=== PATIENT | male | born 1980 | race Caucasian/White ===

== ENCOUNTER 2021-03-11 09:45 | Outpatient (REF) | payer OTHER, SELFPAY ==
[2021-03-11 12:22] LABS: Hematocrit 42.3 % (42-52); Hemoglobin 14.4 g/dl (14.0-18.0); Mean Corpuscular Hemoglobin 30.8 pg (27.0-33.0); Mean Corpuscular Volume 90.6 fL (80-98); Mean Platelet Volume 11.1 fL (9.4-12.4); Platelet Count 220 X10*3/uL (160-400); Red Blood Count 4.67 X10*6/uL (4.60-5.80); Red Cell Distribution Width 12.4 % (11.0-16.0); White Blood Count 7.3 X10*3/uL (4.8-10.8)
[2021-03-11 12:33] LABS: Alanine Aminotransferase 65 U/L (0-40); Alkaline Phosphatase 175 U/L (39-117); Anion Gap 18 (12-20); Aspartate Amino Transferase 33 U/L (5-37); Bilirubin Total 1.4 mg/dL (0.0-1.0); Blood Urea Nitrogen 16 mg/dL (9-16); Calcium 9.9 mg/dL (8.4-10.2); Carbon Dioxide 28 mmol/L (22-29); Chloride 102 mmol/L (96-108); Cholesterol 193 mg/dL; Estimated Glomerular Filt Rate > 60; Glucose Fasting 97 mg/dL (60-99); HDL Cholesterol 46 mg/dL; LDL Cholesterol Calculated 123 mg/dl; Potassium 4.3 mmol/L (3.3-5.1); Sodium 144 mmol/L (135-145); Total Protein 8.3 g/dL (6.5-8.0); Triglycerides 120 mg/dL
[2021-03-11 13:17] LABS: Glucose Urine UA NEG (NEG); Leukocyte Esterase Urine NEG (NEG); Nitrite Urine NEG (NEG); Specific Gravity - Urine <= 1.005 (1.005-1.025); Urine Blood NEG (NEG); Urine Ketones NEG (NEG); Urine Protein NEG (NEG-TRACE)
[2021-03-11 13:21] LABS: Appearance Urine CLEAR; Color Urine YELLOW
[2021-03-11 14:43] LABS: RBC Urine 0 /HPF (0); WBC Urine 0 /HPF (0-4)
== END 2021-03-11 09:46 | disposition home or self-care (01) ==
LOC: HO.HMGCLDS 09:45
PROVIDERS: PCP Internal Medicine; Visit Provider Internal Medicine
DX: Z00.00 Encounter for general adult medical examination without abnormal findings (principal)
CPT/HCPCS: 36415; 80053; 80061; 81001; 85027

== ENCOUNTER 2021-03-30 08:28 | Outpatient (REF) | payer OTHER, SELFPAY ==
--- NOTE | ~2021-03-30 | US_ITS ---
EXAMINATION: US ABDOMEN COMPLETE CLINICAL INFORMATION: Abnormal levels of other serum enzymes. COMPARISON: None TECHNIQUE: Real-time imaging of the abdominal viscera. FINDINGS: PANCREAS: Normal. ABDOMINAL AORTA: The proximal, mid, and distal segments are normal in caliber. INFERIOR VENA CAVA: Visualized portions are normal. LIVER: Normal. The liver is normal in size. The liver contour is normal. Parenchymal echogenicity is normal. No focal hepatic lesion. There is no intrahepatic biliary duct dilatation seen. GALLBLADDER: Normal. The gallbladder is physiologically distended without evidence of stones, sludge, polyps, wall thickening or pericholecystic fluid. COMMON BILE DUCT: Normal in caliber measuring 0.5 cm in diameter. RIGHT KIDNEY: There is mild increased echogenicity. There is an anechoic cyst, midpole, measuring 1.7 x 1.6 x 1.3 cm and 0.61 x 0.60 x 0.20 cm. There is mild fullness in the kidney pelvis but no hydronephrosis or renal calculi. The kidney measures 11.3 cm in maximum dimension. LEFT KIDNEY: There is an anechoic cyst in the upper pole measuring 1.0 x 0.8 x 0.70 cm. There is mild fullness but no hydronephrosis or renal calculi. The kidney measures 10.6 cm in maximum dimension. SPLEEN: Normal. The spleen measures 11.5 cm in maximum dimension. FREE FLUID: None. US/US abdomen complete IMPRESSION: 1. Mild bilateral renal fullness. No echogenic stones seen. Mild bilateral increased echogenicity both kidneys. 2. The rest of the abdominal ultrasound is unremarkable.
== END 2021-03-30 08:29 | disposition home or self-care (01) ==
LOC: HO.HMGCX 08:28
PROVIDERS: PCP Internal Medicine; Visit Provider Internal Medicine
DX: R74.8 Abnormal levels of other serum enzymes (principal)
CPT/HCPCS: 76700

== ENCOUNTER 2021-04-12 07:28 | Outpatient (REF) | payer OTHER, SELFPAY ==
[2021-04-12 11:46] LABS: Alanine Aminotransferase 131 U/L (0-40); Albumin Level 4.6 g/dL (3.5-5.0); Alkaline Phosphatase 169 U/L (39-117); Aspartate Amino Transferase 71 U/L (5-37); Bilirubin Direct 0.5 mg/dL (0.0-0.5); Bilirubin Total 1.8 mg/dL (0.0-1.0); Total Protein 7.7 g/dL (6.5-8.0)
== END 2021-04-12 07:29 | disposition home or self-care (01) ==
LOC: HO.HMGCLDS 07:28
PROVIDERS: PCP Internal Medicine; Visit Provider Internal Medicine
DX: R74.8 Abnormal levels of other serum enzymes (principal)
CPT/HCPCS: 36415; 80076

== ENCOUNTER 2021-05-04 08:17 | Outpatient (REF) | payer OTHER, SELFPAY ==
[2021-05-04 10:47] LABS: C Reactive Protein 0.26 mg/dL (< or = 0.50); Gamma Glutamyl Transpeptidase 208 U/L (11-51)
[2021-05-04 11:07] LABS: HBc Num1 0.06 S/CO (0.00-0.79); Hepatitis A Antibody IgM 0.15 Index (0-0.79); Hepatitis B Core Antibody Nonreactive (Nonreactive); Hepatitis B Surface Antigen Negative (Negative); ~HepC Num1 0.09 S/CO (0.00-0.79); ~Hepatitis A Antibody IgM Nonreactive (Nonreactive); ~Hepatitis C Antibody Nonreactive (Nonreactive)
[2021-05-04 11:11] LABS: Ferritin 430 ng/mL (20-250)
[2021-05-04 11:56] LABS: HIV AB/AG Nonreactive (Nonreactive); HIV Num 1 0.05 S/CO (0.00-0.99); ~Hepatitis B Surface Antibody NONREACTIVE (Nonreactive)
[2021-05-06 12:12] LABS: Alpha Fetoprotein 1.6 ng/mL (<6.1)
[2021-05-07 23:56] LABS: Smooth Muscle Antibody <20 U (<20)
[2021-05-09 11:35] LABS: Mitochondrial Antibodies NEGATIVE (NEGATIVE)
[2021-05-10 16:21] LABS: Ceruloplasmin 38 mg/dL (18-36)
[2021-05-10 19:21] LABS: FIB-ALT 110 U/L (9-46); FIB-Alpha-2-Macroglobulin 205 mg/dL (106-279); FIB-Apolipoprotein A1 158 mg/dL (94-176); FIB-GGT 165 U/L (3-95); FIB-Haptoglobin 200 mg/dL (43-212); Liver Fibrosis Score 0.37; Liver Fibrosis Stage F1-F2; Nec Inflam Act Grade A3; Nec Inflam Act Score 0.63
== END 2021-05-04 08:18 | disposition home or self-care (01) ==
LOC: HO.LAB 08:17
PROVIDERS: PCP Internal Medicine; Referring Provider Internal Medicine; Visit Provider Nurse Practitioner Family
DX: R74.8 Abnormal levels of other serum enzymes (principal); R79.89 Other specified abnormal findings of blood chemistry; K58.9 Irritable bowel syndrome, unspecified
CPT/HCPCS: 36415; 81596; 82105; 82390; 82728; 82977; 86140; 86255; 86256; 86704; 86706; 86709; 86803; 87340; 87389; 99202

== ENCOUNTER → 2021-06-17 12:08 | Outpatient (BNVA) | payer OTHER, SELFPAY | PROVIDERS: Visit Provider Nurse Practitioner Family | DX: R74.8 Abnormal levels of other serum enzymes (principal) | CPT/HCPCS: 99212 ==

== ENCOUNTER 2021-07-14 08:27 | Outpatient (REF) | payer OTHER, SELFPAY ==
[2021-07-14 12:09] LABS: HBS Num1 4.61 mIU/mL (0-7.99); HBc Num1 0.12 S/CO (0.00-0.79); HBsAGNum1 0.17 S/CO (0.00-0.99); Hepatitis B Core Antibody Nonreactive (Nonreactive); Hepatitis B Surface Antigen Negative (Negative); ~HepC Num1 0.08 S/CO (0.00-0.79); ~Hepatitis B Surface Antibody NONREACTIVE (Nonreactive)
[2021-07-14 12:10] LABS: ~Hepatitis C Antibody Nonreactive (Nonreactive)
[2021-07-14 12:22] LABS: Alanine Aminotransferase 125 U/L (0-40); Albumin Level 4.9 g/dL (3.5-5.0); Alkaline Phosphatase 181 U/L (39-117); Anion Gap 15 (12-20); Aspartate Amino Transferase 57 U/L (5-37); Bilirubin Direct 0.5 mg/dL (0.0-0.5); Bilirubin Total 1.1 mg/dL (0.0-1.0); Blood Urea Nitrogen 20 mg/dL (9-16); C Reactive Protein 0.16 mg/dL (< or = 0.50); Calcium 10.4 mg/dL (8.4-10.2); Carbon Dioxide 29 mmol/L (22-29); Chloride 102 mmol/L (96-108); Estimated Glomerular Filt Rate > 60; Gamma Glutamyl Transpeptidase 192 U/L (11-51); Glucose Fasting 102 mg/dL (60-99); Potassium 4.7 mmol/L (3.3-5.1); Sodium 141 mmol/L (135-145)
[2021-07-15 03:30] LABS: Hepatitis A Antibody IgM 0.27 Index (0-0.79); ~Hepatitis A Antibody IgM Nonreactive (Nonreactive)
[2021-07-18 15:12] LABS: Anti Nuclear Antibody Screen POSITIVE (NEGATIVE)
[2021-07-19 12:45] LABS: Liver Kidney Microsomal Ab <=20.0 U (<=20.0)
== END 2021-07-14 08:28 | disposition home or self-care (01) ==
LOC: HO.HMGCLDS 08:27
PROVIDERS: PCP Internal Medicine; Visit Provider Nurse Practitioner Family
DX: Z00.00 Encounter for general adult medical examination without abnormal findings (principal); R74.8 Abnormal levels of other serum enzymes; K58.9 Irritable bowel syndrome, unspecified; R79.89 Other specified abnormal findings of blood chemistry
CPT/HCPCS: 36415; 80053; 80076; 81256; 82248; 82977; 86038; 86039; 86140; 86376; 86704; 86706; 86709; 86803; 87340

== ENCOUNTER 2021-09-12 08:34 | Outpatient (REF) | payer OTHER, SELFPAY ==
--- NOTE | ~2021-09-12 | US_ITS ---
EXAMINATION: US COMPLETE ABDOMEN WITH LIVER ELASTOGRAPHY CLINICAL INFORMATION: Elevated LFTs. COMPARISON: None. TECHNIQUE: Real-time imaging of the abdominal viscera. Noninvasive ultrasound liver fibrosis assessment is performed using Jose ElastPQ point quantification shear wave elastography (pSWE) with a C5-2 MHz transducer. Multiple elastography samples are obtained. FINDINGS: PANCREAS: There is a small echogenic foci question calcification. The visualized pancreatic head and body are normal in appearance. The remainder of the pancreas is obscured from visualization by the overlying bowel gas. ABDOMINAL AORTA: The proximal, middle, and distal aortic segments are normal in caliber. Mild atherosclerotic calcific plaque visualized in distal abdominal aorta. INFERIOR VENA CAVA: Visualized portions are normal. LIVER: Normal. The liver demonstrates normal size, contour and echogenicity. No focal lesion or intrahepatic biliary duct dilatation. The right lobe measures 11.5 cm in length. The left lobe measures 7.7 cm in length. Portal flow is hepatopedal Shear wave liver elastography median stiffness is 1.31 m/s (reference: normal median stiffness is 1.3 m/s or less). IQR/median stiffness to assess sampling precision is 0.06 (reference: good quality data set is IQR/median stiffness of 0.15 or less). GALLBLADDER: There is echogenic debris visualized in the decubitus view. The gallbladder is physiologically distended without evidence of stones, polyps, wall thickening or pericholecystic fluid. COMMON BILE DUCT: Normal in caliber measuring 0.4 cm in diameter. RIGHT KIDNEY: There is mild increased echogenicity with multiple anechoic cysts largest cyst in the midpole laterally measuring 1.9 x 1.4 x 1.6 cm. There is mild hydronephrosis. No renal calculi or focal parenchymal lesions. The kidney measures 11.1 cm in maximum dimension. LEFT KIDNEY: There are multiple anechoic cysts with the largest cyst in upper pole measuring 0.9 x 0.7 x 0.9 cm. There is mild hydronephrosis. No renal calculi or focal parenchymal lesions. The kidney measures 11.3 cm in maximum dimension. SPLEEN: Normal. The spleen measures 10.8 cm in maximum dimension. FREE FLUID: None. PELVIS: The prostate is normal size measuring 2.0 x 0.9 x 1.2 cm. There is incidental finding of a cyst. Adjacent and superior to the right prostate gland is a heterogeneous complex structure measuring 4.6 x 2.3 x 3.4 cm appears to be communicating the prostate gland and most likely represents enlarged seminal vesicle. Imaging of the bladder reveals absent right ureteral jet. The left ureteral jet is seen. US/US abdomen comp w elastography IMPRESSION: 1. Normal liver echo pattern. Soft tissue mass superior and lateral to prostate gland likely enlarged right seminal vesicle or a lymph node. There is a small cyst in the prostate gland. There is bilateral hydronephrosis with bilateral renal cysts. The right ureteral jet is absent. The left ureteral jet is visualized in the bladder. Mild sclerotic calcified plaques in the aorta with no aneurysmal dilatation. Scattered echogenic foci in the pancreas likely tiny calcifications. 2. Liver elastography: Median liver stiffness 1.31 suggestive of high probability normal. REFERENCE: Society of Radiologists in Ultrasound Liver Stiffness Thresholds (2019): LIVER STIFFNESS THRESHOLDS: *Liver Stiffness equal or less than 1.3 m/s: High probability of being normal. *Liver Stiffness less than 1.7 m/s: In the absence of other known clinical signs, rules out compensated advanced chronic liver disease. *Liver Stiffness 1.7-2.1 m/s: Suggestive of compensated advanced chronic liver disease but need further test for confirmation. *Liver Stiffness over 2.1 m/s: Rules in compensated advanced chronic liver disease. *Liver Stiffness over 2.4 m/s: Suggestive of clinically significant portal hypertension. QUALITY OF DATA SET: *IQR/Median value equal or less than 0.15 implies a quality data set. *IQR/Median value over 0.15 implies a poor quality data set. SIGNIFICANT CHANGE FROM PRIOR EXAM: Significant change if liver stiffness measurement is 10% or greater from prior exam. OTHER CONSIDERATIONS: The stage of liver fibrosis may be overestimated in the setting of acute hepatitis, liver inflammation, elevated liver function tests, hepatic vascular congestion, obstructive cholestasis, non-fasting state, and infiltrative diseases such as amyloidosis and lymphoma. In some patients with NAFLD, the liver stiffness thresholds for compensated advanced chronic liver disease may be lower. In causes other than viral hepatitis and NAFLD, liver stiffness thresholds are not well established.
== END 2021-09-12 08:35 | disposition home or self-care (01) ==
LOC: HO.US 08:34
PROVIDERS: PCP Internal Medicine; Visit Provider Nurse Practitioner Family
DX: R79.89 Other specified abnormal findings of blood chemistry (principal)
CPT/HCPCS: 76705; 76981

== ENCOUNTER → 2021-09-26 07:57 | Outpatient (BNVA) | payer OTHER, SELFPAY | PROVIDERS: PCP Internal Medicine; Referring Provider Internal Medicine; Visit Provider Nurse Practitioner Family | DX: R74.8 Abnormal levels of other serum enzymes (principal) | CPT/HCPCS: 99212 ==

== ENCOUNTER 2021-10-13 07:32 | Outpatient (REF) | payer OTHER, SELFPAY ==
[2021-10-13 11:24] LABS: Hematocrit 43.3 % (42.0-52.0); Hemoglobin 14.9 g/dl (14.0-18.0); Mean Corpuscular HGB Conc 34.4 g/dl (31.0-36.0); Mean Corpuscular Hemoglobin 31.2 pg (27.0-33.0); Mean Corpuscular Volume 90.8 fL (80.0-98.0); Mean Platelet Volume 11.6 fL (9.4-12.4); Platelet Count 215 X10*3/uL (160-400); Red Blood Count 4.77 X10*6/uL (4.60-5.80); Red Cell Distribution Width 12.3 % (11.0-16.0); White Blood Count 7.3 X10*3/uL (4.8-10.8)
[2021-10-13 12:04] LABS: Ferritin 354 ng/mL (20-250)
[2021-10-13 12:26] LABS: Alanine Aminotransferase 104 U/L (0-40); Albumin Level 4.9 g/dL (3.5-5.0); Alkaline Phosphatase 160 U/L (39-117); Aspartate Amino Transferase 53 U/L (5-37); Bilirubin Direct 0.5 mg/dL (0.0-0.5); Bilirubin Total 1.5 mg/dL (0.0-1.0); Iron 127 mcg/dL (45-160); Percent Iron Saturation 35 % (15-50); Total Iron Binding Capacity 363 mcg/dL (228-428); Total Protein 8.3 g/dL (6.5-8.0); Unsaturated Iron Binding 236 ug/dL
[2021-10-16 21:52] LABS: Alkaline Phosphatase Bone 25.8 mcg/L (7.0-18.3)
[2021-10-17 21:46] LABS: Alk.Phos Iso. Macrohepatic 0 % (<=0); Alk.Phos Isoenzymes Bone 33 % (28-66); Alk.Phos Isoenzymes Intest 0 % (1-24); Alk.Phos Isoenzymes Liver 67 % (25-69); Alk.Phos Isoenzymes Placental 0 % (<=0); Alk.Phos Isoenzymes Total 147 U/L (36-130)
== END 2021-10-13 07:33 | disposition home or self-care (01) ==
LOC: HO.HMGCLDS 07:32
PROVIDERS: PCP Internal Medicine; Visit Provider Nurse Practitioner Family
DX: R74.8 Abnormal levels of other serum enzymes (principal)
CPT/HCPCS: 36415; 80076; 82728; 83540; 84075; 84080; 85027

== ENCOUNTER 2021-11-04 09:11 | Outpatient (REF) | payer OTHER, SELFPAY ==
[2021-11-04 11:54] LABS: Vitamin D 25-OH Total 50.8 ng/mL (>30)
== END 2021-11-04 09:12 | disposition home or self-care (01) ==
LOC: HO.HMGCLDS 09:11
PROVIDERS: PCP Internal Medicine; Visit Provider Internal Medicine
DX: Z00.00 Encounter for general adult medical examination without abnormal findings (principal)
CPT/HCPCS: 36415; 82306

== ENCOUNTER → 2021-11-23 14:17 | Outpatient (BNVA) | payer OTHER, SELFPAY | PROVIDERS: PCP Internal Medicine; Visit Provider Urology | DX: N28.1 Cyst of kidney, acquired (principal) | CPT/HCPCS: 99202 ==

== ENCOUNTER → 2022-03-27 07:55 | Outpatient (BNVA) | payer OTHER, SELFPAY | PROVIDERS: PCP Internal Medicine; Visit Provider Nurse Practitioner Family | DX: R74.8 Abnormal levels of other serum enzymes (principal) | CPT/HCPCS: 99212 ==

== ENCOUNTER 2022-04-19 09:28 | Outpatient (REF) | payer OTHER, SELFPAY ==
[2022-04-19 11:51] LABS: Alanine Aminotransferase 49 U/L (0-40); Albumin Level 4.9 g/dL (3.5-5.0); Alkaline Phosphatase 150 U/L (39-117); Aspartate Amino Transferase 34 U/L (5-37); Bilirubin Direct 0.6 mg/dL (0.0-0.5); Bilirubin Total 1.8 mg/dL (0.0-1.0); Total Protein 7.9 g/dL (6.5-8.0)
[2022-04-19 12:02] LABS: Ferritin 214 ng/mL (20-250)
== END 2022-04-19 09:29 | disposition home or self-care (01) ==
LOC: HO.HMGCLDS 09:28
PROVIDERS: PCP Internal Medicine; Visit Provider Nurse Practitioner Family
DX: R74.8 Abnormal levels of other serum enzymes (principal)
CPT/HCPCS: 36415; 80076; 82728

== ENCOUNTER 2022-05-10 09:21 | Outpatient (REF) | payer OTHER, SELFPAY ==
--- NOTE | ~2022-05-10 | US_ITS ---
EXAMINATION: US ABDOMEN COMPLETE CLINICAL INFORMATION: Elevated liver enzymes. COMPARISON: Ultrasound abdomen complete 09/12/2021 and 03/30/2021. TECHNIQUE: Real-time imaging of the abdominal viscera. FINDINGS: PANCREAS: There are scattered echogenic calcifications in the pancreas. The pancreatic borders are not well-delineated. ABDOMINAL AORTA: The proximal and mid abdominal aorta are normal caliber with minimal atherosclerotic changes in the distal segment. INFERIOR VENA CAVA: Visualized portions are normal. LIVER: The wall thickness is 0.2 cm. The liver is normal in size. The liver contour is normal. Parenchymal echogenicity is normal. No focal hepatic lesion. There is no intrahepatic biliary duct dilatation seen. GALLBLADDER: There is echogenic debris in the dependent segment of gallbladder on decubitus view. No wall thickening seen. The gallbladder wall thickness is 0.2 cm. No pericholecystic fluid collection. COMMON BILE DUCT: Normal in caliber measuring 0.5 cm in diameter. RIGHT KIDNEY: There is increased cortical echogenicity. There are 2 anechoic cysts the largest in midpole laterally measures 2.2 x 1.5 x 1.2 cm. No renal calculi or focal parenchymal lesions. The kidney measures 11.0 cm in maximum dimension. Mild hydronephrosis is noted. LEFT KIDNEY: There is increased cortical echogenicity. There is mild hydronephrosis. No renal calculi or focal parenchymal lesions. The kidney measures 11.4 cm in maximum dimension. There are anechoic cysts with the largest cyst measuring 1.1 x 0.8 x 0.9 cm. SPLEEN: Normal. The spleen measures 11.6 cm in maximum dimension. FREE FLUID: None. US/US abdomen complete IMPRESSION: Echogenic debris in the dependent decubitus gallbladder. No echogenic stones or wall thickening. Bilateral echogenic renal cortices with mild hydronephrosis but no echogenic stone seen. There are bilateral renal cysts. Atherosclerotic calcification of abdominal aorta and numerous pancreatic calcifications likely sequelae of chronic pancreatitis. The pancreatic borders are not seen well.
== END 2022-05-10 09:22 | disposition home or self-care (01) ==
LOC: HO.US 09:21
PROVIDERS: PCP Internal Medicine; Visit Provider Nurse Practitioner Family
DX: R74.8 Abnormal levels of other serum enzymes (principal)
CPT/HCPCS: 76700

== ENCOUNTER 2022-11-08 08:07 | Outpatient (REF) | payer OTHER, SELFPAY ==
--- NOTE | ~2022-11-08 | US_ITS ---
EXAMINATION: US RETROPERITONEAL LIMITED (RENAL ONLY) CLINICAL INFORMATION: Cyst of kidney, acquired. COMPARISON: Ultrasound abdomen complete 05/10/2022 and 09/12/2021. TECHNIQUE: Real-time imaging of the kidneys. FINDINGS: RIGHT KIDNEY: 10.9 x 5.3 x 5.10 cm (SAG x AP x TRV). 1.9 cm or less benign right simple renal cysts for which no further dedicated follow up imaging is indicated. The otherwise appears unremarkable normal in size and contour. Renal cortical thickness is normal. No renal calculi identified. Limited evaluation of renal parenchymal echogenicity. Grossly unremarkable. LEFT KIDNEY: 10.1 x 4.5 x 6.7 cm (SAG x AP x TRV). 1.0 cm or less benign left simple renal cyst for which no further dedicated follow up imaging is indicated. The kidney otherwise appears unremarkable in size and contour. Renal cortical thickness is normal. No renal calculi identified. Limited evaluation of renal parenchymal echogenicity. Grossly unremarkable. US/US renal BI IMPRESSION: Benign bilateral simple renal cysts for which no further dedicated follow up imaging is indicated.
[2022-11-08 11:26] LABS: MANUAL DIFF FLAG NO
[2022-11-08 11:42] LABS: Basophils Absolute Auto 0.1 X10*3/uL (0.0-0.2); Basophils Percent Auto 0.8 % (0-2); Eosinophils Absolute Auto 0.6 X10*3/uL (0.0-0.4); Hematocrit 41.8 % (42.0-52.0); Hemoglobin 14.8 g/dl (14.0-18.0); Imm Gran Abs Auto 0.02 X10*3/uL (0.00-0.03); Imm Gran Pct Auto 0.2 % (0.0-0.4); Lymphocytes Absolute Auto 2.3 X10*3/uL (1.2-4.9); Lymphocytes Percent Auto 23.8 % (20-40); Mean Corpuscular HGB Conc 35.4 g/dl (31.0-36.0); Mean Corpuscular Hemoglobin 31.4 pg (27.0-33.0); Mean Corpuscular Volume 88.6 fL (80.0-98.0); Mean Platelet Volume 10.4 fL (9.4-12.4); Monocytes Absolute Auto 0.6 X10*3/uL (0.1-1.2); Monocytes Percent Auto 5.8 % (2-11); Neutrophils Percent Auto 63.4 % (45-73); Platelet Count 210 X10*3/uL (160-400); Red Blood Count 4.72 X10*6/uL (4.60-5.80); Red Cell Distribution Width 12.3 % (11.0-16.0); White Blood Count 9.5 X10*3/uL (4.8-10.8)
[2022-11-08 12:02] LABS: Alanine Aminotransferase 51 U/L (0-40); Albumin Level 4.6 g/dL (3.5-5.0); Alkaline Phosphatase 183 U/L (39-117); Anion Gap 16 (12-20); Aspartate Amino Transferase 40 U/L (5-37); Bilirubin Total 1.4 mg/dL (0.0-1.0); Blood Urea Nitrogen 15 mg/dL (9-16); Calcium 9.4 mg/dL (8.4-10.2); Carbon Dioxide 28 mmol/L (22-29); Chloride 102 mmol/L (96-108); Cholesterol 309 mg/dL; Estimated Glomerular Filt Rate > 60; Gamma Glutamyl Transpeptidase 289 U/L (11-51); Glucose Fasting 96 mg/dL (60-99); HDL Cholesterol 60 mg/dL; LDL Cholesterol Calculated 210 mg/dl; Potassium 4.3 mmol/L (3.3-5.1); Sodium 142 mmol/L (135-145); Total Protein 7.3 g/dL (6.5-8.0); Triglycerides 196 mg/dL
[2022-11-08 12:22] LABS: TSH reflex Free T4 1.71 uIU/mL (0.32-4.0)
[2022-11-10 13:59] LABS: Alpha Fetoprotein 1.3 ng/mL (<6.1)
== END 2022-11-08 08:08 | disposition home or self-care (01) ==
LOC: HO.HMGCX 08:07
PROVIDERS: Absent Provider Internal Medicine; PCP Internal Medicine; Visit Provider Urology
DX: Z00.00 Encounter for general adult medical examination without abnormal findings (principal); R74.8 Abnormal levels of other serum enzymes; N28.1 Cyst of kidney, acquired
CPT/HCPCS: 36415; 76775; 80053; 80061; 82105; 82977; 84443; 85025

== ENCOUNTER → 2022-11-20 09:50 | Outpatient (BNVA) | payer OTHER, SELFPAY | PROVIDERS: PCP Internal Medicine; Visit Provider Nurse Practitioner Family | DX: R74.8 Abnormal levels of other serum enzymes (principal) | CPT/HCPCS: 99212 ==

== ENCOUNTER → 2022-11-24 08:31 | Outpatient (BNVA) | payer OTHER, SELFPAY | PROVIDERS: PCP Internal Medicine; Visit Provider Urology | DX: Z09 Encounter for follow-up examination after completed treatment for conditions other than malignant neoplasm (principal); N28.1 Cyst of kidney, acquired | CPT/HCPCS: 99212 ==

== ENCOUNTER 2022-12-05 08:03 | Outpatient (REF) | payer OTHER, SELFPAY ==
--- NOTE | ~2022-12-05 | US_ITS ---
EXAMINATION: US ABDOMEN LIMITED CLINICAL INFORMATION: Other specified abnormal findings of blood chemistry. COMPARISON: Renal ultrasound 11/08/2022 TECHNIQUE: Real-time imaging of the right upper quadrant abdominal viscera. FINDINGS: PANCREAS: Normal. LIVER: Normal. The liver is normal in size. The liver contour is normal. Parenchymal echogenicity is normal. No focal hepatic lesion. There is no intrahepatic biliary duct dilatation seen. GALLBLADDER: There is echogenic debris seen in the gallbladder with wall thickening of 0.24 cm. The gallbladder is physiologically distended without evidence of stones, polyps, wall thickening or pericholecystic fluid. COMMON BILE DUCT: Normal in caliber measuring 0.3 cm in diameter. RIGHT KIDNEY: No hydronephrosis or renal calculi. The kidney measures 11.2 cm in maximum dimension. There are several anechoic cysts. A lower pole cyst measures 1.0 x 0.76 x 1.6 cm. A mid pole cyst measures 3.3 x 1.8 x 2.5 cm. A mid pole cyst laterally measures 1.9 x 1.6 x 1.3 cm. FREE FLUID: None. US/US abdomen limited IMPRESSION: Echogenic debris in the gallbladder with no echogenic stones. Borderline normal gallbladder wall thickness. Multiple right renal cysts. Unchanged to previous right renal ultrasound. No follow-up needed Unremarkable liver, pancreas and CBD.
[2022-12-05 11:25] LABS: Alanine Aminotransferase 134 U/L (0-40); Albumin Level 4.5 g/dL (3.5-5.0); Alkaline Phosphatase 193 U/L (39-117); Aspartate Amino Transferase 102 U/L (5-37); Bilirubin Direct 0.2 mg/dL (0.0-0.5); Bilirubin Total 0.9 mg/dL (0.0-1.0); Iron 105 mcg/dL (45-160); Percent Iron Saturation 30 % (15-50); Total Iron Binding Capacity 345 mcg/dL (228-428); Total Protein 7.2 g/dL (6.5-8.0); Unsaturated Iron Binding 240 ug/dL
[2022-12-05 11:44] LABS: Ferritin 226 ng/mL (20-250)
== END 2022-12-05 08:04 | disposition home or self-care (01) ==
LOC: HO.HMGCX 08:03
PROVIDERS: Absent Provider Internal Medicine; PCP Internal Medicine; Visit Provider Nurse Practitioner Family
DX: R10.9 Unspecified abdominal pain (principal); R74.8 Abnormal levels of other serum enzymes; K92.2 Gastrointestinal hemorrhage, unspecified; R79.89 Other specified abnormal findings of blood chemistry
CPT/HCPCS: 36415; 76705; 80076; 82728; 83540

== ENCOUNTER 2023-03-13 09:49 | Outpatient (REF) | payer OTHER, SELFPAY ==
[2023-03-13 11:52] LABS: Cholesterol 261 mg/dL; HDL Cholesterol 55 mg/dL; LDL Cholesterol Calculated 178 mg/dl; Triglycerides 144 mg/dL
== END 2023-03-13 09:50 | disposition home or self-care (01) ==
LOC: HO.HMGCLDS 09:49
PROVIDERS: PCP Internal Medicine; Visit Provider Internal Medicine
DX: E78.5 Hyperlipidemia, unspecified (principal)
CPT/HCPCS: 36415; 80061

== ENCOUNTER 2023-05-21 07:57 | Outpatient (AMB) | payer OTHER, SELFPAY ==
--- NOTE | 2023-05-21 08:18 | A.OFFVIS_ITS ---
Intake Vital Signs 05/21/23 08:20 Height 5 ft 3 in Weight 167 lb 4 oz BMI 29.6 BP 136/87 Pulse 90 Pulse Source Pulse Oximeter Intake Visit Reasons: 6 Month Follow Up Allergies Cephalosporins Allergy (Unknown, Verified 11/24/22 08:36) rash HPI 6 Month Follow Up HPI Details LAST VISIT: (1) Elevated liver enzymes: ?Code(s): R74.8 - Abnormal levels of other serum enzymes ?Plan: Will repeat liver ultrasound and enzyme today.? Will add ferritin and iron profile.? Patient is asymptomatic.? He is a carrier for hemochromatosis.? I will see patient in 6 months, sooner on as needed basis.? Patient is agreeable to this plan and verbalizes understanding of instructions.? He was given the opportunity to ask questions and all questions answered.? Thank you for allowing me to participate in his care TODAY'S VISIT Patient is here today for follow-up and to discuss ultrasound results. Patient had normal iron profile, ferritin. Ultrasound was also normal. His liver enzymes were elevated, however patient has no abdominal pain or discomfort. Patient states that he is doing well. He gained 6 lb since last visit. Patient denies any GI concerning symptoms. [facility] Medical History Acne rosacea Annual physical exam Elevated liver enzymes FHx: colon cancer Pericarditis Surgical History History of liver biopsy Family History Father FH: multiple myeloma Mother Stroke Maternal Grandmother Stroke Other Pericarditis Social History Housing: House Alcohol intake: current Alcohol intake frequency: does not drink Patient Tobacco Use Status: Never used Tobacco e-Cigarette/Vaping Use: Never Used Second Hand Smoke Exposure: No Current occupational status: unemployed Cognitive needs: No Hearing needs: No Vision needs: No Review of Systems Const Denies weight gain and Denies weight loss ENT Reports no additional complaints, Denies dysphagia and Denies odynophagia Card Reports no additional complaints Resp Reports no additional complaints GI Denies abdominal pain, Denies belching, Denies melena, Denies bloating, Denies change in bowel habits, Denies dysphagia, Denies excessive flatus, Denies dyspepsia, Denies heartburn, Denies diarrhea, Denies loose stools, Denies nausea, Denies odynophagia and Denies vomiting Reports no additional complaints Musc Reports no additional complaints Neuro Reports no additional complaints Psych Reports no additional complaints Endo Reports no additional complaints Physical Exam Const General: healthy appearing, no acute distress and well developed Nutritional Appearance: well nourished Orientation/consciousness: patient oriented x3 HEENT Head: Yes normal to inspection, Yes normocephalic and Yes atraumatic Face and sinus: Yes normal facial exam Mouth: Normal oral and palatal mucosa present Throat: Yes posterior oropharynx normal, Yes tonsils normal and Yes uvula midline Eyes General: appearance normal, both eyes and all related structures Neck Neck: Yes normal visual inspection, Yes full ROM and Yes trachea midline Thyroid: Thyroid normal Resp Effort & Inspection: normal respiratory effort, able to speak in complete sentences, no tracheal deviation and symmetric chest movement Auscultation: clear to auscultation bilaterally Cardio Rate: regular rate Heart sounds: S1 normal heart sound present and S2 normal heart sound present GI Inspection: Yes normal to inspection and No distended Palpation (GI): Soft to palpation, not firm, nontender and No hepatosplenomegaly present Auscultation: normal bowel sounds General: Yes no CVA tenderness Back/Spine/Pelvis Back: no CVA tenderness Skin General skin exam: elasticity normal, turgor normal and dry skin Neuro General: patient oriented x3 Psych Appearance: grossly normal Mental Status: mental status grossly normal Speech and movement: Normal speech and movement present Results Reviewed Results Reviewed: ABDOMINAL US. FINDINGS: PANCREAS: Normal. LIVER: Normal. The liver is normal in size. The liver contour is normal. Parenchymal echogenicity is normal. No focal hepatic lesion. There is no intrahepatic biliary duct dilatation seen. GALLBLADDER: There is echogenic debris seen in the gallbladder with wall thickening of 0.24 cm. The gallbladder is physiologically distended without evidence of stones, polyps, wall thickening or pericholecystic fluid. COMMON BILE DUCT: Normal in caliber measuring 0.3 cm in diameter. RIGHT KIDNEY: No hydronephrosis or renal calculi. The kidney measures 11.2 cm in maximum dimension. There are several anechoic cysts. A lower pole cyst measures 1.0 x 0.76 x 1.6 cm. A mid pole cyst measures 3.3 x 1.8 x 2.5 cm. A mid pole cyst laterally measures 1.9 x 1.6 x 1.3 cm. FREE FLUID: None. US/US abdomen limited IMPRESSION: Echogenic debris in the gallbladder with no echogenic stones. Borderline normal gallbladder wall thickness. ? Multiple right renal cysts. Unchanged to previous right renal ultrasound. No follow-up needed ? Unremarkable liver, pancreas and CBD. Assessment & Plan Assessment & Plan (1) Elevated liver enzymes: Code(s): R74.8 - Abnormal levels of other serum enzymes Plan: Normal ultrasound. Hepatic steatosis. Patient was encouraged to lose weight. Patient was encouraged to exercise. Denies any GI concerning symptoms will repeat liver enzymes today. Patient will be back in 4 months to discuss colonoscopy. He is agreeable to this plan and verbalizes understanding of instructions. He was given the opportunity to ask questions and all questions answered. Thank you for allowing me to participate in his care Orders: Orders Liver Panel Today R10.9 - Unspecified abdominal pain Coding Level of Care Code Est Pt Level 3 (25391) Diagnoses Elevated liver enzymes R74.8 Time Spent (min) 25 Comment 15 minutes spent with patient and additional 10 minute spent reviewing his records
[2023-05-21 08:20] VITALS: BP 136/87; PULSE 90; BMI 29.6
== END 2023-05-21 08:30 | disposition home or self-care (01) ==
PROVIDERS: PCP Internal Medicine; Visit Provider Nurse Practitioner Family
DX: R74.8 Abnormal levels of other serum enzymes (principal)
CPT/HCPCS: 99213

== ENCOUNTER → 2023-05-21 07:57 | Outpatient (BNVA) | payer OTHER, SELFPAY | PROVIDERS: PCP Internal Medicine; Visit Provider Nurse Practitioner Family | DX: R74.8 Abnormal levels of other serum enzymes (principal); R10.9 Unspecified abdominal pain; E78.5 Hyperlipidemia, unspecified | CPT/HCPCS: 99212 ==

== ENCOUNTER 2023-05-23 07:16 | Outpatient (REF) | payer OTHER, SELFPAY ==
[2023-05-23 11:50] LABS: Alanine Aminotransferase 98 U/L (0-40); Albumin Level 4.6 g/dL (3.5-5.0); Alkaline Phosphatase 169 U/L (39-117); Aspartate Amino Transferase 59 U/L (5-37); Bilirubin Direct 0.3 mg/dL (0.0-0.5); Bilirubin Total 1.1 mg/dL (0.0-1.0); Cholesterol 210 mg/dL; HDL Cholesterol 60 mg/dL; LDL Cholesterol Calculated 120 mg/dl; Triglycerides 151 mg/dL
== END 2023-05-23 07:17 | disposition home or self-care (01) ==
LOC: HO.HMGCLDS 07:16
PROVIDERS: PCP Internal Medicine; Visit Provider Internal Medicine
DX: R10.9 Unspecified abdominal pain (principal); E78.5 Hyperlipidemia, unspecified
CPT/HCPCS: 36415; 80061; 80076

== ENCOUNTER 2023-09-10 08:00 | Outpatient (AMB) | payer OTHER, SELFPAY ==
--- NOTE | 2023-09-10 08:13 | MHC.OFFVIS ---
Intake Vital Signs 09/10/23 08:20 Height 5 ft 3 in Weight 171 lb BMI 30.3 BP 178/100 H Blood Pressure Location Lt brachial Position Sitting Pulse 101 H Intake Visit Reasons: 4month f/u to discuss colo Intake Note: Patient denies any GI issues. Branch Office Manager Required: No Accompanied by: Self / Same As Patient Allergies Cephalosporins Allergy (Unknown, Verified 09/10/23 08:18) rash HPI 4month f/u to discuss colo HPI Details LAST VISIT: Elevated liver enzymes Normal ultrasound. Hepatic steatosis. Patient was encouraged to lose weight. Patient was encouraged to exercise. Denies any GI concerning symptoms will repeat liver enzymes today. Patient will be back in 4 months to discuss colonoscopy. He is agreeable to this plan and verbalizes understanding of instructions. He was given the opportunity to ask questions and all questions answered. ? Thank you for allowing me to participate in his care Plan Orders Orders Liver Panel Today R10.9 - Unspecified abdominal pain TODAY'S VISIT Patient is here today for follow-up and to discuss lab results. Patient's liver enzymes improved, however still elevated. Patient has not lost any weight. He gained few lb patient had. Patient gained 40 lb in 1 year. Patient denies any GI concerning symptoms. Patient denies melena, hematochezia, unintentional weight loss or ribbon like stools. Patient denies any dyspepsia, dysphagia or odynophagia. [facility] Medical History Acne rosacea Annual physical exam Elevated liver enzymes FHx: colon cancer Pericarditis Surgical History History of liver biopsy Family History Father FH: multiple myeloma Mother Stroke Maternal Grandmother Stroke Other Pericarditis Social History Housing: House Alcohol intake: current Alcohol intake frequency: does not drink Patient Tobacco Use Status: Never used Tobacco e-Cigarette/Vaping Use: Never Used Second Hand Smoke Exposure: No Current occupational status: unemployed Cognitive needs: No Hearing needs: No Vision needs: No Review of Systems Const Denies weight gain and Denies weight loss ENT Reports no additional complaints, Denies dysphagia and Denies odynophagia Card Reports no additional complaints Resp Reports no additional complaints GI Denies abdominal pain, Denies belching, Denies melena, Denies bloating, Denies change in bowel habits, Denies dysphagia, Denies excessive flatus, Denies dyspepsia, Denies heartburn, Denies diarrhea, Denies loose stools, Denies nausea, Denies odynophagia and Denies vomiting Reports no additional complaints Musc Reports no additional complaints Neuro Reports no additional complaints Psych Reports no additional complaints Endo Reports no additional complaints Physical Exam Vital Signs: BMI result Body Mass Index 30.3 Const General: healthy appearing, no acute distress and well developed Nutritional Appearance: obese Orientation/consciousness: patient oriented x3 HEENT Head: Yes normal to inspection, Yes normocephalic and Yes atraumatic Face and sinus: Yes normal facial exam Mouth: Normal oral and palatal mucosa present Throat: Yes posterior oropharynx normal, Yes tonsils normal and Yes uvula midline Eyes General: appearance normal, both eyes and all related structures Neck Neck: Yes normal visual inspection, Yes full ROM and Yes trachea midline Thyroid: Thyroid normal Resp Effort & Inspection: normal respiratory effort, able to speak in complete sentences, no tracheal deviation and symmetric chest movement Auscultation: clear to auscultation bilaterally Cardio Rate: regular rate Heart sounds: S1 normal heart sound present and S2 normal heart sound present GI Inspection: Yes normal to inspection, No distended and Yes obesity Palpation (GI): Soft to palpation, not firm, nontender and No hepatosplenomegaly present Auscultation: normal bowel sounds General: Yes no CVA tenderness Back/Spine/Pelvis Back: no CVA tenderness Skin General skin exam: elasticity normal, turgor normal and dry skin Neuro General: patient oriented x3 Psych Appearance: grossly normal Mental Status: mental status grossly normal Results Reviewed Results Reviewed: Laboratory Tests 05/23/23 07:23 Total Bilirubin 1.1 H Direct Bilirubin 0.3 AST 59 H ALT 98 H Alkaline Phosphatase 169 H Assessment & Plan Assessment & Plan (1) Elevated liver enzymes: Code(s): R74.8 - Abnormal levels of other serum enzymes Plan Continue to eat food low in fat. Patient was encouraged to continue exercising. Lab work repeat in 4 months as well as liver ultrasound. Patient is agreeable to this plan and verbalizes understanding of instructions. He was given the opportunity to ask questions and all questions answered. Thank you for allowing me to participate in his care Orders: Orders US abdomen limited 4 Months R79.89 - Other specified abnormal findings of blood chemistry Liver Panel 4 Months R10.9 - Unspecified abdominal pain Coding Level of Care Code Est Pt Level 3 (24985) Diagnoses Elevated liver enzymes R74.8 Time Spent (min) 25 Comment 15 minutes spent with patient and additional 10 minutes spent reviewing his records
[2023-09-10 08:20] VITALS: BP 178/100; PULSE 101; BMI 30.3
== END 2023-09-10 09:55 | disposition home or self-care (01) ==
PROVIDERS: PCP Internal Medicine; Visit Provider Nurse Practitioner Family
DX: R74.8 Abnormal levels of other serum enzymes (principal)
CPT/HCPCS: 99213

== ENCOUNTER → 2023-09-10 08:00 | Outpatient (BNVA) | payer OTHER, SELFPAY | PROVIDERS: PCP Internal Medicine; Visit Provider Nurse Practitioner Family | DX: R74.8 Abnormal levels of other serum enzymes (principal) | CPT/HCPCS: 99212 ==

== ENCOUNTER 2023-11-05 11:23 | Outpatient (AMB) | payer OTHER, SELFPAY ==
[2023-11-05 11:24] VITALS: BP 150/90; PULSE 100; O2SAT 99; BMI 30.5
--- NOTE | 2023-11-05 11:24 | MHC.PC.OV ---
Vital Signs 11/05/23 11:24 Height 5 ft 3 in Weight 172 lb BMI 30.5 BP 150/90 H Blood Pressure Location Rt brachial Position Sitting Pulse 100 Pulse Source Pulse Oximeter Pulse Oximetry (%) 99 Oxygen Delivery Method Room Air Intake Visit Reasons: Annual PE Intake Note: Pt is here today for PE. Allergies Cephalosporins Allergy (Unknown, Verified 11/05/23 11:29) rash Medication List - Last Reconciled 11/05/23 by Carole Agosto MD cyclosporine 0.05% (Restasis) 1 drp ophthalmic (eye) Q12H metronidazole 0.75% (MetroCream) 1 appl topical DAILY pravastatin 40 mg PO DAILY tretinoin 0.025% 1 appl topical BEDTIME Tobacco use date assessed: 11/05/23 Dental Screening Dental Screen Date: 11/05/23 Did you have a dental visit in the last 12 months?: Yes Did you have a dental problem in the last 6 months where you did not have access to dental care?: No Was dental information given to patient?: Patient has dentist HPI Annual PE HPI Details Patient presents for physical. He has not been physically active and eating out a lot, gaining 10 lb since the last physical. [facility] Medical History (Updated 11/05/23 @ 12:19 by Carole Agosto MD) FHx: colon cancer Annual physical exam Pericarditis Elevated liver enzymes Acne rosacea Surgical History History of liver biopsy Family History Father FH: multiple myeloma Mother Stroke Maternal Grandmother Stroke Other Pericarditis Social History Housing: House Alcohol intake: current Alcohol intake frequency: does not drink Patient Tobacco Use Status: Never used Tobacco e-Cigarette/Vaping Use: Never Used Second Hand Smoke Exposure: No Current occupational status: unemployed Cognitive needs: No Hearing needs: No Vision needs: No Questionnaire PHQ-9 Over the last 2 weeks, how often have you been bothered by any of the following problems? 1. Little interest or pleasure in doing things: not at all 2. Feeling down, depressed, or hopeless: not at all 3. Trouble falling or staying asleep, or sleeping too much: not at all 4. Feeling tired or having little energy: not at all 5. Poor appetite or overeating: not at all 6. Feeling bad about yourself - or that you are a failure or have let yourself or your family down: not at all 7. Trouble concentrating on things, such as reading the newspaper or watching television: not at all 8. Moving or speaking so slowly that other people could have noticed. Or the opposite - being so fidgety or restless that you have been moving around a lot more than usual: not at all 9. Thoughts that you would be better off or of hurting yourself in some way: not at all Total score: 0 Depression Screening Interpretation: Negative Depression Screening Done: Yes Source: Developed by Drs. Bj Corbett, Rosa Keys, Olivier Dunbar and colleagues, with an educational gerald from [employer] Thrive Questionnaire Date Thrive assessed: 11/05/23 I am a: Patient What is your living situation today?: I have a steady place to live Within the past 12 months, did the food you bought not last and you didn't have the money to get more?: Never true Within the past 12 months, did you worry whether your food would run out before you got money to buy more?: Never true Do you have trouble paying for medicines?: No Do you have trouble getting transportation to medical appointments?: No Do you have trouble paying your heating and electricity bill?: No Do you have trouble taking care of your child, family member or friend?: No Do you have trouble with day-to-day activities such as bathing, preparing meals, shopping, managing finances, etc.?: No Are you currently unemployed and looking for a job?: No Are you interested in more education?: No Please select the resources that you would like help with: None Currently or been in a relationship where the following occur: no concerns reported THRIVE Score: 0 AUDIT C Alcohol Use Questionnaire (AUDIT-C) 1. How often do you have a drink containing alcohol?: Never 3. How often do you have six or more drinks on one occasion?: Never Total Score: 0 MELISSA-7 AMB Questionnaire MELISSA-7 Date MELISSA - 7 assessed: 11/05/23 Feeling nervous, anxious, or on edge: 0 = Not at all Not being able to stop or control worryin = Not at all Worrying too much about different things: 0 = Not at all Trouble relaxin = Not at all Being so restless that it is hard to sit still: 0 = Not at all Becoming easily annoyed or irritable: 0 = Not at all Feeling afraid as if something awful might happen: 0 = Not at all Total MELISSA-7 score (0-4 normal; 5-9 mild; 10-14 moderate; 15-21 severe): 0 Source: Developed by Drs. Bj Corbett, Rosa Keys, Olivier Dunbar and colleagues, with an educational gerald from [employer]. Review of Systems Const All systems reviewed & are unremarkable except as noted in HPI and below Reports no additional complaints Eyes Reports no additional complaints ENT Reports no additional complaints Card Reports no additional complaints Resp Reports no additional complaints GI Reports no additional complaints Physical exam (Primary Care) Vital Signs: Last Vital Signs Pulse 100 11/05/23 11:24 BP 120/76 11/05/23 11:24 Pulse Ox 99 11/05/23 11:24 Oxygen Delivery Method Room Air 11/05/23 11:24 BMI result Body Mass Index 30.5 Tobacco/Smoking Status: Tobacco use Status Tobacco use date assessed 11/05/23 11/05/23 11:30 Patient Tobacco Use Status Never used Tobacco 11/05/23 11:30 e-Cigarette/Vaping Use Never Used 11/05/23 11:24 PHQ-9: PHQ-9 Score PHQ-9: Total score 0 11/05/23 11:32 Depression Screening Interpretation: Negative Thrive Assessment: Date of Thrive Assessment Date Thrive assessed 11/05/23 11/05/23 11:32 Currently or been in a relationship where the following occur: no concerns reported Const General: no acute distress HENMT Head: Yes normal to inspection Ears: hearing grossly normal bilaterally General nose exam: Normal external nose present Face and sinus: Yes normal facial exam Mouth: Normal oral and palatal mucosa present Throat: Yes posterior oropharynx normal Eyes General: appearance normal, both eyes and all related structures Neck Neck: Yes no lymphadenopathy and Yes supple Resp Effort & Inspection: normal respiratory effort Auscultation: clear to auscultation bilaterally Cardio Rhythm: regular rhythm Heart sounds: S1 normal heart sound present and S2 normal heart sound present GI Inspection: Yes normal to inspection Palpation (GI): Soft to palpation Percussion: Yes normal to percussion Auscultation: normal bowel sounds Assessment and Plan Assessment & Plan (1) Hyperlipidemia: Code(s): E78.5 - Hyperlipidemia, unspecified Plan: Continue pravastatin (2) Depression: Comment: off Zoloft Code(s): F32.A - Depression, unspecified Plan: Follow-up with a counselor as needed (3) Annual physical exam: Code(s): Z00.00 - Encounter for general adult medical examination without abnormal findings Plan: Well-balanced diet regular exercise weight loss discussed with the patient. He will have a colonoscopy (4) HTN (hypertension): Code(s): I10 - Essential (primary) hypertension Plan: Low-sodium diet increase exercise weight loss discussed with the patient, lisinopril 10 mg daily will be started. Patient will follow-up in 6 weeks Orders: Orders Complete Blood Count Auto Diff 2 Weeks E78.5 - Hyperlipidemia, unspecified, R74.8 - Abnormal levels of other serum enzymes, Z00.00 - Encounter for general adult medical examination without abnormal findings Comprehensive [place]. Panel Fast 2 Weeks E78.5 - Hyperlipidemia, unspecified, R74.8 - Abnormal levels of other serum enzymes, Z00.00 - Encounter for general adult medical examination without abnormal findings Lipid Panel 2 Weeks E78.5 - Hyperlipidemia, unspecified, R74.8 - Abnormal levels of other serum enzymes, Z00.00 - Encounter for general adult medical examination without abnormal findings Medications: New lisinopril 10 mg PO DAILY 90 tabs 0RF Discontinued sertraline (Zoloft) Discontinued Reason: Doctor's Order 100 mg (2 x 50 mg) PO DAILY 180 tabs 3RF Coding Level of Care Code Est Pt Prev Care 40-64y(24892) Diagnoses Hyperlipidemia E78.5 Depression F32.A Annual physical exam Z00.00 HTN (hypertension) I10
== END 2023-11-05 12:24 | disposition home or self-care (01) ==
PROVIDERS: PCP Internal Medicine; Visit Provider Internal Medicine
DX: Z00.00 Encounter for general adult medical examination without abnormal findings (principal); E78.5 Hyperlipidemia, unspecified; F32.A Depression, unspecified; I10 Essential (primary) hypertension
CPT/HCPCS: 99396

== ENCOUNTER 2023-11-21 07:59 | Outpatient (REF) | payer OTHER, SELFPAY ==
[2023-11-21 11:38] LABS: MANUAL DIFF FLAG NO
[2023-11-21 11:49] LABS: Basophils Absolute Auto 0.1 X10*3/uL (0.0-0.2); Eosinophils Absolute Auto 0.1 X10*3/uL (0.0-0.4); Hematocrit 40.8 % (42.0-52.0); Hemoglobin 14.3 g/dl (14.0-18.0); Imm Gran Abs Auto 0.02 X10*3/uL (0.00-0.03); Imm Gran Pct Auto 0.3 % (0.0-0.4); Lymphocytes Percent Auto 28.6 % (20-40); Mean Corpuscular Hemoglobin 31.6 pg (27.0-33.0); Mean Corpuscular Volume 90.3 fL (80.0-98.0); Mean Platelet Volume 11.5 fL (9.4-12.4); Monocytes Absolute Auto 0.5 X10*3/uL (0.1-1.2); Monocytes Percent Auto 6.7 % (2-11); Neutrophils Absolute Auto 4.3 x10*3/uL (2.0-8.3); Neutrophils Percent Auto 61.4 % (45-73); Platelet Count 233 X10*3/uL (160-400); Red Blood Count 4.52 X10*6/uL (4.60-5.80); Red Cell Distribution Width 12.4 % (11.0-16.0)
[2023-11-21 12:13] LABS: Alanine Aminotransferase 79 U/L (0-40); Albumin Level 4.7 g/dL (3.5-5.0); Alkaline Phosphatase 153 U/L (39-117); Anion Gap 13 (12-20); Aspartate Amino Transferase 39 U/L (5-37); Bilirubin Total 1.2 mg/dL (0.0-1.0); Blood Urea Nitrogen 21 mg/dL (9-16); Calcium 10.1 mg/dL (8.4-10.2); Carbon Dioxide 28 mmol/L (22-29); Chloride 103 mmol/L (96-108); Cholesterol 200 mg/dL (<200); Estimated Glomerular Filt Rate > 60; Glucose Fasting 106 mg/dL (60-99); HDL Cholesterol 54 mg/dL (>40); LDL Cholesterol Calculated 126 mg/dL (<100); Sodium 140 mmol/L (135-145); Total Protein 8.2 g/dL (6.5-8.0); Triglycerides 100 mg/dL (<150)
== END 2023-11-21 08:00 | disposition home or self-care (01) ==
LOC: HO.HMGCLDS 07:59
PROVIDERS: PCP Internal Medicine; Visit Provider Internal Medicine
DX: Z00.00 Encounter for general adult medical examination without abnormal findings (principal); R74.8 Abnormal levels of other serum enzymes; E78.5 Hyperlipidemia, unspecified
CPT/HCPCS: 36415; 80053; 80061; 85025

== ENCOUNTER 2023-12-10 08:46 | Outpatient (REF) | payer OTHER, SELFPAY ==
--- NOTE | ~2023-12-10 | US_ITS ---
EXAMINATION: US ABDOMEN LIMITED CLINICAL INFORMATION: Other specified abnormal findings of blood chemistry. Elevated liver function tests. COMPARISON: Limited abdominal ultrasound 12/05/2022. Renal ultrasound 11/08/2022. Ultrasound abdomen complete 05/10/2022. TECHNIQUE: Real-time imaging of the right upper quadrant abdominal viscera. Limited visualization due to bowel gas. FINDINGS: PANCREAS: Limited visualization of pancreatic tail and head. Imaged portion of pancreatic body is unremarkable. LIVER: Increased hepatic parenchymal heterogeneity and echogenicity could be associated with hepatocellular disease/hepatic steatosis and substantially limits visualization. Correlation with liver function tests and clinical exam recommended to determine further management. GALLBLADDER: No gallstones. No gallbladder wall thickening. COMMON BILE DUCT: Normal in caliber measuring 0.4 cm in diameter. RIGHT KIDNEY: No hydronephrosis or renal calculi. Mild pelviectasis. No renal calculi. Limited visualization. Redemonstration of right midpole 2.4 cm and 1.2 cm cysts. There is no indication for follow-up imaging. The kidney measures 12.2 cm in maximum dimension. FREE FLUID: None. US/US abdomen limited IMPRESSION: 1. Increased hepatic parenchymal heterogeneity and echogenicity could be associated with hepatocellular disease/hepatic steatosis and substantially limits visualization. Correlation with liver function tests and clinical exam recommended to determine further management. 2. Mild right renal pelviectasis. No renal calculi identified. Limited visualization.
== END 2023-12-10 08:47 | disposition home or self-care (01) ==
LOC: HO.HMGCX 08:46
PROVIDERS: PCP Internal Medicine; Visit Provider Nurse Practitioner Family
DX: R79.89 Other specified abnormal findings of blood chemistry (principal)
CPT/HCPCS: 76705

== ENCOUNTER 2023-12-12 10:16 | Outpatient (REF) | payer OTHER, SELFPAY ==
[2023-12-12 14:35] LABS: Bilirubin Direct 0.3 mg/dL (0.0-0.5); Bilirubin Total 1.2 mg/dL (0.0-1.0); Gamma Glutamyl Transpeptidase 158 U/L (11-51)
[2023-12-12 14:45] LABS: Ferritin 138 ng/mL (20-250)
[2023-12-13 12:13] LABS: Alpha Fetoprotein 1.5 ng/mL (<6.1)
[2023-12-14 11:58] LABS: Mitochondrial Antibodies NEGATIVE (NEGATIVE)
[2023-12-17 12:42] LABS: Smooth Muscle Antibody <20 U (<20)
[2023-12-21 14:04] LABS: FIB-ALT 51 U/L (9-46); FIB-Alpha-2-Macroglobulin 184 mg/dL (106-279); FIB-Apolipoprotein A1 182 mg/dL (94-176); FIB-GGT 129 U/L (3-95); FIB-Haptoglobin 304 mg/dL (43-212); Liver Fibrosis Score 0.22; Liver Fibrosis Stage F0-F1; Nec Inflam Act Grade A0-A1; Nec Inflam Act Score 0.27
== END 2023-12-12 10:17 | disposition home or self-care (01) ==
LOC: HO.HMGCLDS 10:16
PROVIDERS: Visit Provider Nurse Practitioner Family
DX: R74.8 Abnormal levels of other serum enzymes (principal); R79.89 Other specified abnormal findings of blood chemistry; R17 Unspecified jaundice; R10.9 Unspecified abdominal pain
CPT/HCPCS: 36415; 81596; 82105; 82247; 82248; 82728; 82977; 86015; 86381

== ENCOUNTER 2023-12-20 10:50 | Outpatient (AMB) | payer OTHER, SELFPAY ==
[2023-12-20 10:51] VITALS: BP 118/76; PULSE 91; O2SAT 97; BMI 29.8
--- NOTE | 2023-12-20 10:51 | MHC.PC.OV ---
Vital Signs 12/20/23 10:51 Height 5 ft 3 in Weight 168 lb BMI 29.8 BP 118/76 Blood Pressure Location Lt brachial Position Sitting Pulse 91 Pulse Source Pulse Oximeter Pulse Oximetry (%) 97 Oxygen Delivery Method Room Air Intake Visit Reasons: 6 week follow up Intake Note: Pt is here today for 6 weeks follow up visit. Allergies Cephalosporins Allergy (Unknown, Verified 12/20/23 11:00) rash Medication List - Last Reconciled 12/20/23 by Carole Agosto MD cyclosporine 0.05% (Restasis) 1 drp ophthalmic (eye) Q12H lisinopril 10 mg PO DAILY metronidazole 0.75% (MetroCream) 1 appl topical DAILY pravastatin 40 mg PO DAILY tretinoin 0.025% 1 appl topical BEDTIME Tobacco use date assessed: 11/05/23 HPI 6 week follow up HPI Details Pt presents for HTN, hyperlipid, STABLE ON CURRENT MEDICATIONS. Patient is trying to schedule a counseling appointment for chronic anxiety. [facility] Medical History FHx: colon cancer Annual physical exam Pericarditis Elevated liver enzymes Acne rosacea Surgical History History of liver biopsy Family History Father FH: multiple myeloma Mother Stroke Maternal Grandmother Stroke Other Pericarditis Social History Housing: House Alcohol intake: current Alcohol intake frequency: does not drink Patient Tobacco Use Status: Never used Tobacco e-Cigarette/Vaping Use: Never Used Second Hand Smoke Exposure: No Current occupational status: unemployed Cognitive needs: No Hearing needs: No Vision needs: No Questionnaire Thrive Questionnaire Date Thrive assessed: 11/05/23 MELISSA-7 AMB Questionnaire MELISSA-7 Date MELISSA - 7 assessed: 11/05/23 Source: Developed by Drs. Bj Corbett, Rosa Keys, Olivier Dunbar and colleagues, with an educational gerald from [employer] Review of Systems Const All systems reviewed & are unremarkable except as noted in HPI and below Reports no additional complaints Eyes Reports no additional complaints ENT Reports no additional complaints Card Reports no additional complaints Resp Reports no additional complaints GI Reports no additional complaints Reports no additional complaints Physical exam (Primary Care) Vital Signs: Last Vital Signs Pulse 91 12/20/23 10:51 BP 118/76 12/20/23 10:51 Pulse Ox 97 12/20/23 10:51 Oxygen Delivery Method Room Air 12/20/23 10:51 BMI result Body Mass Index 29.8 Tobacco/Smoking Status: Tobacco use Status Tobacco use date assessed 11/05/23 12/20/23 10:53 Patient Tobacco Use Status Never used Tobacco 12/20/23 10:53 e-Cigarette/Vaping Use Never Used 12/20/23 10:53 Thrive Assessment: Date of Thrive Assessment Date Thrive assessed 11/05/23 12/20/23 10:53 Const General: no acute distress HENMT Head: Yes normal to inspection Eyes General: appearance normal, both eyes and all related structures Neck Neck: Yes supple Resp Effort & Inspection: normal respiratory effort Auscultation: clear to auscultation bilaterally Cardio Rhythm: regular rhythm Heart sounds: S1 normal heart sound present and S2 normal heart sound present Assessment and Plan Assessment & Plan (1) Hyperlipidemia: Code(s): E78.5 - Hyperlipidemia, unspecified Plan: Continue pravastatin (2) HTN (hypertension): Code(s): I10 - Essential (primary) hypertension Plan: Continue Lisinopril (3) Fatty liver: Code(s): K76.0 - Fatty (change of) liver, not elsewhere classified Plan: Increase physical activity weight loss avoidance of high fructose products discussed with the patient. Follow-up in 3 months with a fasting labs before Orders: Orders Comprehensive Met. Panel 3 Months E78.5 - Hyperlipidemia, unspecified, I10 - Essential (primary) hypertension Lipid Panel 3 Months E78.5 - Hyperlipidemia, unspecified, I10 - Essential (primary) hypertension Hemoglobin A1c 3 Months E78.5 - Hyperlipidemia, unspecified, I10 - Essential (primary) hypertension Coding Level of Care Code Est Pt Level 4 (48245) Diagnoses Hyperlipidemia E78.5 HTN (hypertension) I10 Fatty liver K76.0
== END 2023-12-20 11:39 | disposition home or self-care (01) ==
PROVIDERS: PCP Internal Medicine; Visit Provider Internal Medicine
DX: E78.5 Hyperlipidemia, unspecified (principal); I10 Essential (primary) hypertension; K76.0 Fatty (change of) liver, not elsewhere classified
CPT/HCPCS: 99214

== ENCOUNTER 2024-04-25 08:07 | Outpatient (AMB) | payer OTHER, SELFPAY ==
--- NOTE | 2024-04-25 08:10 | MHC.OFFVIS ---
Vital Signs 04/25/24 08:17 Height 5 ft 3 in Weight 163 lb 2.273 oz BMI 28.9 BP 158/96 H Blood Pressure Location Rt brachial Position Sitting Pulse 116 H Pulse Source Pulse Oximeter Pulse Oximetry (%) 98 Oxygen Delivery Method Room Air Intake Visit Reasons: follow up Intake Note: Justin presents in office today for a scheduled FUV. CC; Pt had previously completed labs (12/12/23), abd US (12/10/23). Pt did not have their liver panel completed however. Pt reports that they are still stable since their last visit. Pt reports only new development being that they are experiencing new onset of fatigue which they believe is possibly related to new SSRI that they have been placed on. Pt denies any other changes or concerns. 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 Patient was encouraged to continue exercising. Lab work repeat in 4 months as well as liver ultrasound. Patient is agreeable to this plan and verbalizes understanding of instructions. He was given the opportunity to ask questions and all questions answered. ? Thank you for allowing me to participate in his care Orders Orders US abdomen limited 4 Months R79.89 Liver Panel 4 Months R10.9 TODAY'S VISIT Patient is here today for follow-up. Liver enzymes improved. Liver ultrasound with increased echogenicity. Patient reports that he is not drinking any alcohol. However his diet has not been followed. Has not been follow low salt, low-fat high-protein diet. Patient is due to go for colonoscopy. Denies any family history of CRC. No history of sleep apnea. Not on any anticoagulation medication. No history of infectious diseases in the past or present. Patient denies any cardiac or respiratory symptoms. Denies any issues with anesthesia in the past [facility] Medical History FHx: colon cancer Annual physical exam Pericarditis Elevated liver enzymes Acne rosacea Surgical History History of liver biopsy Family History Father FH: multiple myeloma Mother Stroke Maternal Grandmother Stroke Other Pericarditis Social History Housing: House Alcohol intake: current Alcohol intake frequency: does not drink Patient Tobacco Use Status: Never used Tobacco e-Cigarette/Vaping Use: Never Used Second Hand Smoke Exposure: No Current occupational status: unemployed Cognitive needs: No Hearing needs: No Vision needs: No Review of Systems Const Denies weight gain and Denies weight loss ENT Reports no additional complaints, Denies dysphagia and Denies odynophagia Card Reports no additional complaints Resp Reports no additional complaints GI Denies abdominal pain, Denies belching, Denies melena, Denies bloating, Denies change in bowel habits, Denies dysphagia, Denies excessive flatus, Denies dyspepsia, Denies heartburn, Denies diarrhea, Denies loose stools, Denies nausea, Denies odynophagia and Denies vomiting Reports no additional complaints Musc Reports no additional complaints Neuro Reports no additional complaints Psych Reports no additional complaints Endo Reports no additional complaints Physical Exam Const General: healthy appearing, no acute distress and well developed Nutritional Appearance: obese Orientation/consciousness: patient oriented x3 Resp Effort & Inspection: normal respiratory effort, able to speak in complete sentences, no tracheal deviation and symmetric chest movement Auscultation: clear to auscultation bilaterally Cardio Rate: regular rate GI Inspection: Yes normal to inspection, No distended and Yes obesity Palpation (GI): Soft to palpation, not firm, nontender and No hepatosplenomegaly present Auscultation: normal bowel sounds General: Yes no CVA tenderness Back/Spine/Pelvis Back: no CVA tenderness Skin General skin exam: elasticity normal, turgor normal and dry skin Neuro General: patient oriented x3 Psych Appearance: grossly normal Mental Status: mental status grossly normal Results Reviewed Results Reviewed: Laboratory Tests 11/21/23 12/12/23 08:07 10:27 Total Bilirubin 1.2 H Direct Bilirubin 0.3 GGT 158 H AST 39 H ALT 79 H Alkaline Phosphatase 153 H Liver Fibrosis Stage F0-F1 Alpha Fetoprotein 1.5 IMPRESSION: 1. Increased hepatic parenchymal heterogeneity and echogenicity could be associated with hepatocellular disease/hepatic steatosis and substantially limits visualization. Correlation with liver function tests and clinical exam recommended to determine further management. 2. Mild right renal pelviectasis. No renal calculi identified. Limited visualization. Assessment & Plan Assessment & Plan (1) Fatty liver: Code(s): K76.0 - Fatty (change of) liver, not elsewhere classified Category: Medical (2) Elevated liver enzymes: Code(s): R74.8 - Abnormal levels of other serum enzymes Category: Medical (3) Screen for colon cancer: Code(s): Z12.11 - Encounter for screening for malignant neoplasm of colon Plan Patient denies any GI, cardiac or respiratory symptoms.? Denies any issues with anesthesia in the past.? Denies any history of sleep apnea.? No history infectious diseases in the past or present.? Not on any anticoagulation therapy.? No family or personal history of colon cancer or polyps.? Patient denies melena, hematochezia, unintentional weight loss or ribbon like stools.? Discussed at length the pre-procedure,? prep, diet & medications as well as what to expect prior, during and after the procedure.?? Stressed the importance of good bowel prep.? Recommended the use of Vaseline or Calmoseptine OTC & baby wipes with bowel movements to promote comfort.? ?Patient verbalizes understanding and agrees to plan of care.? She was given the opportunity to ask questions and all questions answered.? We will see her after the procedure.? Orders: Orders Liver Panel Today R74.01 - Elevation of levels of liver transaminase levels Medications: New bisacodyl (Dulcolax (bisacodyl)) take 4 tabs at noon the day before your colonoscopy 20 mg (4 x 5 mg) PO ONCE 1 day 4 tabs 0RF Z12.11 - Encounter for screening for malignant neoplasm of colon polyethylene glycol 3350 (Miralax) As directed by gastroenterology department at [facility] 238 grams PO ONCE 238 grams 0RF Z12.11 - Encounter for screening for malignant neoplasm of colon Coding Level of Care Code Est Pt Level 3 (29845) Diagnoses Fatty liver K76.0 Elevated liver enzymes R74.8 Screen for colon cancer Z12.11 Time Spent (min) 30 Comment 20 minutes spent with patient and additional 10 minutes spent reviewing his records
[2024-04-25 08:17] VITALS: BP 158/96; PULSE 116; O2SAT 98; BMI 28.9
== END 2024-04-25 09:51 | disposition home or self-care (01) ==
PROVIDERS: PCP Internal Medicine; Visit Provider Nurse Practitioner Family
DX: K76.0 Fatty (change of) liver, not elsewhere classified (principal); R74.8 Abnormal levels of other serum enzymes; Z12.11 Encounter for screening for malignant neoplasm of colon
CPT/HCPCS: 99213

== ENCOUNTER → 2024-04-25 08:07 | Outpatient (BNVA) | payer OTHER, SELFPAY | PROVIDERS: PCP Internal Medicine; Visit Provider Nurse Practitioner Family | DX: Z12.11 Encounter for screening for malignant neoplasm of colon (principal); K76.0 Fatty (change of) liver, not elsewhere classified; R74.8 Abnormal levels of other serum enzymes | CPT/HCPCS: 99212 ==

== ENCOUNTER 2024-05-21 09:32 | Outpatient (REF) | payer OTHER, SELFPAY ==
[2024-05-21 10:47] LABS: Alanine Aminotransferase 120 U/L (0-40); Albumin Level 4.7 g/dL (3.5-5.0); Alkaline Phosphatase 177 U/L (39-117); Aspartate Amino Transferase 41 U/L (5-37); Bilirubin Direct 0.4 mg/dL (0.0-0.5); Bilirubin Total 1.1 mg/dL (0.0-1.0); Total Protein 7.9 g/dL (6.5-8.0)
== END 2024-05-21 09:33 | disposition home or self-care (01) ==
LOC: HO.HMGCLDS 09:32
PROVIDERS: PCP Internal Medicine; Visit Provider Nurse Practitioner Family
DX: R74.01 Elevation of levels of liver transaminase levels (principal)
CPT/HCPCS: 36415; 80076

== ENCOUNTER 2024-05-27 09:12 | Outpatient (REF) | payer OTHER, SELFPAY ==
[2024-05-27 10:19] LABS: Estimated Average Glucose 100 mg/dL; Hemoglobin A1c % 5.1 % (<6.0)
[2024-05-27 11:17] LABS: Alanine Aminotransferase 261 U/L (0-40); Albumin Level 4.9 g/dL (3.5-5.0); Alkaline Phosphatase 199 U/L (39-117); Anion Gap 13 (12-20); Aspartate Amino Transferase 80 U/L (5-37); Bilirubin Total 1.3 mg/dL (0.0-1.0); Blood Urea Nitrogen 22 mg/dL (9-16); Calcium 10.4 mg/dL (8.4-10.2); Carbon Dioxide 27 mmol/L (22-29); Chloride 103 mmol/L (96-108); Cholesterol 216 mg/dL (<200); Estimated Glomerular Filt Rate > 60; Glucose Random 96 mg/dL (60-115); HDL Cholesterol 60 mg/dL (>40); LDL Cholesterol Calculated 121 mg/dL (<100); Sodium 139 mmol/L (135-145); Total Protein 8.4 g/dL (6.5-8.0); Triglycerides 178 mg/dL (<150)
== END 2024-05-27 09:13 | disposition home or self-care (01) ==
LOC: HO.HMGCLDS 09:12
PROVIDERS: PCP Internal Medicine; Visit Provider Internal Medicine
DX: E78.5 Hyperlipidemia, unspecified (principal); I10 Essential (primary) hypertension
CPT/HCPCS: 36415; 80053; 80061; 83036

== ENCOUNTER 2024-05-29 10:41 | Outpatient (AMB) | payer OTHER, SELFPAY ==
[2024-05-29 10:48] VITALS: BP 136/80; PULSE 109; O2SAT 99; BMI 28.7
--- NOTE | 2024-05-29 10:48 | A.OFFPC_ITS ---
Vital Signs 05/29/24 10:48 Height 5 ft 3 in Weight 162 lb BMI 28.7 BP 136/80 Blood Pressure Location Lt brachial Position Sitting Pulse 109 H Pulse Source Pulse Oximeter Pulse Oximetry (%) 99 Oxygen Delivery Method Room Air Intake Visit Reasons: 3 month follow up Intake Note: Pt is here today for 3 months follow up visit. Allergies Cephalosporins Allergy (Unknown, Verified 05/29/24 11:11) rash Medication List - Last Reconciled 05/29/24 by Carole Agosto MD bisacodyl (Dulcolax (bisacodyl)) 20 mg (4 x 5 mg) PO ONCE 1 day bupropion HCl XL 150 mg PO QAM lisinopril 10 mg PO DAILY metronidazole 0.75% (MetroCream) 1 appl topical DAILY polyethylene glycol 3350 (Miralax) 238 grams PO ONCE pravastatin 40 mg PO DAILY Restasis 0.05% (cyclosporine) 1 drp ophthalmic (eye) Q12H NS tretinoin 0.025% 1 appl topical BEDTIME triamcinolone acetonide 0.1% 1 appl topical BID-TID Tobacco use date assessed: 05/29/24 Dental Screening Dental Screen Date: 05/29/24 Did you have a dental visit in the last 12 months?: Yes Did you have a dental problem in the last 6 months where you did not have access to dental care?: No Was dental information given to patient?: Patient has dentist HPI 3 month follow up HPI Details Pt presents for HTN, hyperlipid, stable on meds. [facility] Medical History FHx: colon cancer Annual physical exam Pericarditis Elevated liver enzymes Acne rosacea Surgical History History of liver biopsy Family History Father FH: multiple myeloma Mother Stroke Maternal Grandmother Stroke Other Pericarditis Social History Housing: House Alcohol intake: current Alcohol intake frequency: does not drink Patient Tobacco Use Status: Never used Tobacco e-Cigarette/Vaping Use: Never Used Second Hand Smoke Exposure: No service: No Current occupational status: unemployed Cognitive needs: No Hearing needs: No Vision needs: No Questionnaire PHQ-9 Over the last 2 weeks, how often have you been bothered by any of the following problems? 1. Little interest or pleasure in doing things: nearly every day 2. Feeling down, depressed, or hopeless: nearly every day 3. Trouble falling or staying asleep, or sleeping too much: nearly every day 4. Feeling tired or having little energy: nearly every day 5. Poor appetite or overeating: nearly every day 6. Feeling bad about yourself - or that you are a failure or have let yourself or your family down: nearly every day 7. Trouble concentrating on things, such as reading the newspaper or watching television: nearly every day 8. Moving or speaking so slowly that other people could have noticed. Or the opposite - being so fidgety or restless that you have been moving around a lot more than usual: nearly every day 9. Thoughts that you would be better off or of hurting yourself in some way: not at all Total score: 24 Depression Screening Interpretation: Positive (PATIENT IS ESTABLISHED WITH A PRESCRIBER AND A THERAPIST) Depression Screening Follow-up: Existing condition and In treatment Depression Screening Done: Yes 62878 - PHQ-9 Billing: Yes Source: Developed by Drs. Bj Corbett, Rosa Keys, Olivier Dunbar and colleagues, with an educational gerald from [employer]. Thrive Questionnaire Date Thrive assessed: 05/29/24 I am a: Patient What is your living situation today?: I have a steady place to live Within the past 12 months, did the food you bought not last and you didn't have the money to get more?: Never true Within the past 12 months, did you worry whether your food would run out before you got money to buy more?: Never true Do you have trouble paying for medicines?: No Do you have trouble getting transportation to medical appointments?: No Do you have trouble paying your heating and electricity bill?: No Do you have trouble taking care of your child, family member or friend?: No Do you have trouble with day-to-day activities such as bathing, preparing meals, shopping, managing finances, etc.?: No Are you currently unemployed and looking for a job?: No Are you interested in more education?: No Please select the resources that you would like help with: None Currently or been in a relationship where the following occur: I choose not to answer THRIVE Score: 0 AUDIT C Alcohol Use Questionnaire (AUDIT-C) 1. How often do you have a drink containing alcohol?: Never 3. How often do you have six or more drinks on one occasion?: Never Total Score: 0 MELISSA-7 AMB Questionnaire MELISSA-7 Date MELISSA - 7 assessed: 05/29/24 Feeling nervous, anxious, or on edge: 3 = Nearly every day Not being able to stop or control worryin = Nearly every day Worrying too much about different things: 3 = Nearly every day Trouble relaxin = Nearly every day Being so restless that it is hard to sit still: 3 = Nearly every day Becoming easily annoyed or irritable: 3 = Nearly every day Feeling afraid as if something awful might happen: 3 = Nearly every day Total MELISSA-7 score (0-4 normal; 5-9 mild; 10-14 moderate; 15-21 severe): 21 Source: Developed by Drs. Bj Corbett, Rosa Keys, Olivier Dunbar and colleagues, with an educational gerald from [employer]. MELISSA-7 Assessment Billing MELISSA-7 Assessment Tool: MELISSA-7 Assessment 76130 Physical exam (Primary Care) Vital Signs: Last Vital Signs Pulse 109 H 05/29/24 10:48 BP 136/80 05/29/24 10:48 Pulse Ox 99 05/29/24 10:48 Oxygen Delivery Method Room Air 05/29/24 10:48 BMI result Body Mass Index 28.7 Tobacco/Smoking Status: Tobacco use Status Tobacco use date assessed 05/29/24 05/29/24 11:17 Patient Tobacco Use Status Never used Tobacco 05/29/24 11:17 e-Cigarette/Vaping Use Never Used 05/29/24 10:48 PHQ-9: PHQ-9 Score PHQ-9: Total score 24 05/29/24 11:34 Depression Screening Interpretation: Positive (PATIENT IS ESTABLISHED WITH A PRESCRIBER AND A THERAPIST) Depression Screening Follow-up: Existing condition and In treatment Thrive Assessment: Date of Thrive Assessment Date Thrive assessed 05/29/24 05/29/24 11:17 Currently or been in a relationship where the following occur: I choose not to answer Const General: no acute distress HENMT Mouth: Normal oral and palatal mucosa present Resp Effort & Inspection: normal respiratory effort Auscultation: clear to auscultation bilaterally Cardio Rhythm: regular rhythm Heart sounds: S1 normal heart sound present and S2 normal heart sound present GI Inspection: Yes normal to inspection Palpation (GI): Soft to palpation and No hepatosplenomegaly present Percussion: Yes normal to percussion Auscultation: normal bowel sounds Assessment and Plan Assessment & Plan (1) Hepatitis: Code(s): K75.9 - Inflammatory liver disease, unspecified Plan: Obtain liver MRI to evaluate for worsening elevation LFTs, and liver fibrosis, recheck LFTs in 2 months. (2) Liver fibrosis: Code(s): K74.00 - Hepatic fibrosis, unspecified Plan: as above (3) HTN (hypertension): Code(s): I10 - Essential (primary) hypertension Plan: Continue Lisinopril (4) Depression: Comment: off Zoloft Code(s): F32.A - Depression, unspecified Plan: Follow-up with psychiatrist and a therapist (5) Hyperlipidemia: Code(s): E78.5 - Hyperlipidemia, unspecified Plan: Continue Pravastatin Orders: Orders MR abdomen wo/w con Today K74.00 - Hepatic fibrosis, unspecified, K75.9 - Inflammatory liver disease, unspecified, R79.89 - Other specified abnormal findings of blood chemistry UA w Microscopic 6 Months I10 - Essential (primary) hypertension, K76.0 - Fatty (change of) liver, not elsewhere classified Lipid Panel 2 Months R7.89 - Other specified abnormal findings of blood chemistry Liver Panel Today R7.89 - Other specified abnormal findings of blood chemistry JIGNESH Reflex Titer and Pattern Today R7. - Other specified abnormal findings of blood chemistry Comprehensive Burt. Panel Fast 6 Months I10 - Essential (primary) hypertension, K76.0 - Fatty (change of) liver, not elsewhere classified Complete Blood Count Auto Diff 6 Months I10 - Essential (primary) hypertension, K76.0 - Fatty (change of) liver, not elsewhere classified Lipid Panel 6 Months I10 - Essential (primary) hypertension, K76.0 - Fatty (change of) liver, not elsewhere classified Coding Level of Care Code Est Pt Level 4 (22457) Diagnoses Hepatitis K75.9 Liver fibrosis K74.00 HTN (hypertension) I10 Depression F32.A Hyperlipidemia E78.5 Additional Codes MELISSA-7 Assessment Billing - MELISSA-7 Assessment Tool: MELISSA-7 Assessment 90661 ([id number])
== END 2024-05-29 11:58 | disposition home or self-care (01) ==
PROVIDERS: PCP Internal Medicine; Visit Provider Internal Medicine
DX: K75.9 Inflammatory liver disease, unspecified (principal); K74.00 Hepatic fibrosis, unspecified; I10 Essential (primary) hypertension; F32.A Depression, unspecified; E78.5 Hyperlipidemia, unspecified
CPT/HCPCS: 99214

== ENCOUNTER → 2024-07-08 09:25 | Outpatient (BNV) | payer OTHER, SELFPAY | PROVIDERS: PCP Internal Medicine; Visit Provider Radiology Diagnostic Radiology | DX: N28.1 Cyst of kidney, acquired (principal) | CPT/HCPCS: 74183 ==

== ENCOUNTER 2024-07-08 09:39 | Outpatient (REF) | payer OTHER, SELFPAY ==
--- NOTE | ~2024-07-08 | MR_ITS ---
EXAMINATION: MR ABDOMEN WITHOUT AND WITH CONTRAST CLINICAL INFORMATION: Inflammatory liver disease, unspecified COMPARISON: No priors. Correlated to ultrasound dated December 10, 2023. TECHNIQUE: MR abdomen was performed without and with use of 7.0 mL intravenous Gadavist gadolinium contrast. Postcontrast images are performed in multiphase dynamic sequences. Imaging was performed in 3 planes. No reported immediate complications FINDINGS: Submitted for interpretation on September 11, 2024. LIVER, GALLBLADDER, AND BILIARY TREE: Liver measures 13 cm. No focal mass. No diffusion restriction abnormality. No T2 signal abnormality in the parenchyma. No intrahepatic biliary ductal dilatation. Portal vein, but gross intrahepatic portion of the IVC are patent. The caliber lobe is not enlarged. There is no nodular surface pattern.. Gallbladder is fluid-filled. No pericholecystic fluid collection or gallbladder wall thickening. Common bile duct measures 4 m. PANCREAS: No focal mass. No peripancreatic fluid collection. No main pancreatic ductal dilatation. SPLEEN: 9 cm. No focal mass. ADRENAL GLANDS: No nodular lesion. KIDNEYS AND URETERS: Multifocal nonenhancing different sizes fluid signal characteristic lesions throughout the renal parenchyma, the largest in the right kidney measures 2.2 cm. There is an exophytic 1.1 cm intermediate to slightly increased hyperintense T1 and hypointense T2 no restricted diffusion or enhancing lesion in the posterior upper pole left kidney. GASTROINTESTINAL TRACT: Stool within the large intestine. No intestinal obstruction pattern. No ascites. Appendix is normal. ABDOMINAL WALL: Small tiny fat-containing umbilical hernia. LYMPH NODES: No gross lymphadenopathy, mesenteric or retroperitoneal. VASCULAR: No aneurysm or dissection. There is a normal variation of the celiac trunk with separate origin for the common hepatic and splenic arteries. OSSEOUS STRUCTURES: No acute fracture or listhesis in the axial skeleton. No bone marrow signal abnormality. Conus medullaris ends at inferior endplate of T12 with normal signal. MR/MR abdomen wo/w con IMPRESSION: No hepatic mass or signal abnormality. 1.1 cm exophytic likely hemorrhagic nonenhancing lesion, upper pole left kidney. Recommend follow-up for stability. Bosniak type I cysts , both kidneys. Electronically signed by: Joselo Thrasher MD 09/11/2024 10:52 AM EST
[2024-07-08] MEDS: gadobutroL 7.5 ML VIAL IVPUSH (10:37)
== END 2024-07-08 09:40 | disposition home or self-care (01) ==
LOC: HO.MRI 09:39
PROVIDERS: PCP Internal Medicine; Visit Provider Internal Medicine
DX: K75.9 Inflammatory liver disease, unspecified (principal); K74.00 Hepatic fibrosis, unspecified; R79.89 Other specified abnormal findings of blood chemistry
CPT/HCPCS: 74183; A9585

== ENCOUNTER 2025-02-24 12:58 | Outpatient (AMB) | payer OTHER, SELFPAY ==
--- NOTE | 2025-02-24 13:19 | AM.OFFWIN_ITS ---
Intake Vital Signs 02/24/25 14:21 Weight 160 lb BP 130/90 H Blood Pressure Location Rt brachial Position Sitting Pulse 123 H Pulse Source Pulse Oximeter Pulse Oximetry (%) 98 Oxygen Delivery Method Room Air Intake Visit Reasons: EP issues with privates Intake Note: Patient here for ball on tip of penis that he noticed this morning. Patient Tobacco Use Status: Never used Tobacco Allergies Cephalosporins Allergy (Unknown, Verified 02/24/25 14:20) rash Do you need a note to return to daycare/school/sports/work: No HPI HPI Comments History of Present Illness Details This is a 44 year old male with a past medical history of hypertension, hyperlipidemia and depression presenting for evalaution of a lesion on his penis that he woke up with this morning. Patient denies any sexual activity, injury or trauma preceeding the onset of this lesion. Patient states the lesion is not painful, but the sudden onset was concerning to him. He denies any dysuria or penile discharge. [facility] Medical History FHx: colon cancer Annual physical exam Pericarditis Elevated liver enzymes Acne rosacea Surgical History History of liver biopsy Family History Father FH: multiple myeloma Mother Stroke Maternal Grandmother Stroke Other Pericarditis Social History Housing: House Alcohol intake: current Alcohol intake frequency: does not drink Patient Tobacco Use Status: Never used Tobacco e-Cigarette/Vaping Use: Never Used Second Hand Smoke Exposure: No service: No Current occupational status: unemployed Cognitive needs: No Hearing needs: No Vision needs: No Review of Systems Const All systems reviewed & are unremarkable except as noted in HPI and below Denies chills and Denies fever(s) Eyes Reports no additional complaints ENT Reports no additional complaints Card Reports no additional complaints GI Reports no additional complaints Details: penile cyst, non.painful Musc Reports no additional complaints Skin/Breast Reports system reviewed and no additional complaints, except as documented and Reports lesions (penile cyst) Neuro Reports no additional complaints Psych Reports no additional complaints Endo Reports no additional complaints Aron/Lymph Reports no additional complaints Aller/Immun Reports no additional complaints Physical Exam Const General: cooperative, healthy appearing, comfortable, no acute distress, well developed, alert, awake and Physically active Nutritional Appearance: average body habitus Orientation/consciousness: patient oriented x3 Limitations: no limitations Cardio Other: Patient is tachycardic, recheck 115 beats per minute. Other: there is a 2cm x 1.5cm cystic lesion overlying the ventral surface of the penile shaft adjacent to the frenulum that is non.tender to examination Male General Exam: Yes Genital lesions present (as noted above) Penis: circumcised and Genital lesions present (as noted above) Neuro General: patient oriented x3 Psych Appearance: grossly normal Mental Status: mental status grossly normal Affect: Anxious affect present Insight: Good insight present (Psych) Judgement: Good judgement present (Psych) Assessment & Plan Assessment & Plan (1) Penile cyst: Comment: There is no pain or surrounding erythema; patient will follow-up with [facility] as an outpatient. Code(s): N48.89 - Other specified disorders of penis Plan: I called Urology to schedule an outpatient follow up however they are requesting a referral and requested the patient call them directly. Patient will call [facility] or go to their office this afternoon to arrange outpatient follow up. Coding Level of Care Code Est Pt Level 3 (89441) Diagnoses Penile cyst N48.89 Time Spent (min) 35
[2025-02-24 14:21] VITALS: BP 130/90; PULSE 123; O2SAT 98
== END 2025-02-24 15:10 | disposition home or self-care (01) ==
PROVIDERS: PCP Internal Medicine; Visit Provider Physician Assistant
DX: N48.89 Other specified disorders of penis (principal)

== ENCOUNTER → 2025-02-24 12:58 | Outpatient (BNVA) | payer OTHER, SELFPAY | PROVIDERS: PCP Internal Medicine; Visit Provider Physician Assistant | DX: N48.89 Other specified disorders of penis (principal) | CPT/HCPCS: 99212 ==

== ENCOUNTER 2025-07-31 11:27 | Outpatient (AMB) | payer OTHER, SELFPAY ==
[2025-07-31 11:33] VITALS: BP 118/80; PULSE 93; RESP 17; TEMP 37; O2SAT 99; BMI 30.5
--- NOTE | 2025-07-31 11:33 | A.OFFPC_ITS ---
Vital Signs 07/31/25 11:33 Height 5 ft 3 in Weight 172 lb BMI 30.5 BP 118/80 Blood Pressure Location Lt brachial Position Sitting Respiration 17 Pulse 93 Pulse Source Pulse Oximeter Temp 98.6 F Temp Source Oral Pulse Oximetry (%) 99 Oxygen Delivery Method Room Air Intake Visit Reasons: PE. Intake Note: Pt is here today for a PE. Allergies Cephalosporins Allergy (Unknown, Verified 07/31/25 11:36) rash Medication List - Last Reconciled 07/31/25 by Carole Agosto MD bisacodyl (Dulcolax (bisacodyl)) 20 mg (4 x 5 mg) PO ONCE 1 day bupropion HCl XL 150 mg PO QAM buspirone 5 mg PO TID lisinopril 10 mg PO DAILY lorazepam 0.5 mg PO DAILY PRN metronidazole 0.75% (MetroCream) 1 appl topical DAILY polyethylene glycol 3350 (Miralax) 238 grams PO ONCE pravastatin 40 mg PO DAILY Restasis 0.05% (cyclosporine) 1 drp ophthalmic (eye) Q12H NS tretinoin 0.025% 1 appl topical BEDTIME triamcinolone acetonide 0.1% 1 appl topical BID-TID Tobacco use date assessed: 07/31/25 Dental Screening Dental Screen Date: 07/31/25 Did you have a dental visit in the last 12 months?: Yes Did you have a dental problem in the last 6 months where you did not have access to dental care?: No Was dental information given to patient?: Patient has dentist HPI PE. HPI Details Pt presents for PE. PFSH Medical History (Updated 07/31/25 @ 12:17 by Carole Agosto MD) Renal cysts, acquired, bilateral Hyperlipidemia HTN (hypertension) Depression Annual physical exam Pericarditis Elevated liver enzymes Acne rosacea Surgical History (Updated 07/31/25 @ 12:18 by Carole Agosto MD) History of liver biopsy Family History Father FH: multiple myeloma Mother Stroke Maternal Grandmother Stroke Other Pericarditis Social History Housing: House Alcohol intake: current Alcohol intake frequency: does not drink Patient Tobacco Use Status: Never used Tobacco e-Cigarette/Vaping Use: Never Used Second Hand Smoke Exposure: No service: No Current occupational status: unemployed Cognitive needs: No Hearing needs: No Vision needs: No Questionnaire PHQ-9 Over the last 2 weeks, how often have you been bothered by any of the following problems? 1. Little interest or pleasure in doing things: nearly every day 2. Feeling down, depressed, or hopeless: nearly every day 3. Trouble falling or staying asleep, or sleeping too much: nearly every day 4. Feeling tired or having little energy: nearly every day 5. Poor appetite or overeating: nearly every day 6. Feeling bad about yourself - or that you are a failure or have let yourself or your family down: nearly every day 7. Trouble concentrating on things, such as reading the newspaper or watching television: nearly every day 8. Moving or speaking so slowly that other people could have noticed. Or the opposite - being so fidgety or restless that you have been moving around a lot more than usual: nearly every day 9. Thoughts that you would be better off or of hurting yourself in some way: nearly every day Total score: 27 Depression Screening Interpretation: Positive (established with psychatrist) Depression Screening Follow-up: Existing condition and In treatment Depression Screening Done: Yes 55350 - PHQ-9 Billing: Yes Source: Developed by Drs. Bj Corbett, Rosa Keys, Olivier Dunbar and colleagues, with an educational gerald from [employer]. Thrive Questionnaire Date Thrive assessed: 07/31/25 I am a: Patient What is your living situation today?: I have a steady place to live Within the past 12 months, did the food you bought not last and you didn't have the money to get more?: I choose not to answer this question Within the past 12 months, did you worry whether your food would run out before you got money to buy more?: I choose not to answer this question Do you have trouble paying for medicines?: I choose not to answer this question Do you have trouble getting transportation to medical appointments?: I choose not to answer this question Do you have trouble paying your heating and electricity bill?: I choose not to answer this question Do you have trouble taking care of your child, family member or friend?: I choose not to answer this question Do you have trouble with day-to-day activities such as bathing, preparing meals, shopping, managing finances, etc.?: I choose not to answer this question Are you currently unemployed and looking for a job?: I choose not to answer this question Are you interested in more education?: I choose not to answer this question Please select the resources that you would like help with: None Currently or been in a relationship where the following occur: I choose not to answer THRIVE Score: 0 AUDIT C Alcohol Use Questionnaire (AUDIT-C) 1. How often do you have a drink containing alcohol?: Never Total Score: 0 MELISSA-7 AMB Questionnaire MELISSA-7 Date MELISSA - 7 assessed: 07/31/25 Feeling nervous, anxious, or on edge: 3 = Nearly every day Not being able to stop or control worryin = Nearly every day Worrying too much about different things: 3 = Nearly every day Trouble relaxin = Nearly every day Being so restless that it is hard to sit still: 3 = Nearly every day Becoming easily annoyed or irritable: 3 = Nearly every day Feeling afraid as if something awful might happen: 3 = Nearly every day Total MELISSA-7 score (0-4 normal; 5-9 mild; 10-14 moderate; 15-21 severe): 21 Source: Developed by Drs. Bj Corbett, Rosa Keys, Olivier Dunbar and colleagues, with an educational gerald from [employer]. MELISSA-7 Assessment Billing MELISSA-7 Assessment Tool: MELISSA-7 Assessment 90967 Review of Systems Const All systems reviewed & are unremarkable except as noted in HPI and below Eyes Reports no additional complaints ENT Reports no additional complaints Card Reports no additional complaints Resp Reports no additional complaints GI Reports no additional complaints Reports no additional complaints Physical exam (Primary Care) Vital Signs: Last Vital Signs Temp 98.6 F 07/31/25 11:33 Pulse 93 07/31/25 11:33 Resp 17 07/31/25 11:33 BP 118/80 07/31/25 11:33 Pulse Ox 99 07/31/25 11:33 Oxygen Delivery Method Room Air 07/31/25 11:33 BMI result Body Mass Index 30.5 Tobacco/Smoking Status: Tobacco use Status Tobacco use date assessed 07/31/25 07/31/25 11:42 Patient Tobacco Use Status Never used Tobacco 07/31/25 11:34 e-Cigarette/Vaping Use Never Used 07/31/25 11:34 PHQ-9: PHQ-9 Score PHQ-9: Total score 27 07/31/25 11:42 Depression Screening Interpretation: Positive (established with psychatrist) Depression Screening Follow-up: Existing condition and In treatment Thrive Assessment: Date of Thrive Assessment Date Thrive assessed 07/31/25 07/31/25 11:42 Currently or been in a relationship where the following occur: I choose not to answer Const General: no acute distress HENMT Head: Yes normal to inspection Eyes General: appearance normal, both eyes and all related structures Neck Neck: Yes no lymphadenopathy and Yes supple Resp Effort & Inspection: normal respiratory effort Auscultation: clear to auscultation bilaterally Cardio Rhythm: regular rhythm Heart sounds: S1 normal heart sound present and S2 normal heart sound present GI Inspection: Yes normal to inspection Palpation (GI): Soft to palpation Percussion: Yes normal to percussion Auscultation: normal bowel sounds Extrem General: Yes no clubbing, cyanosis or edema Coding Level of Care Code Est Pt Prev Care 40-64y(09240) Diagnoses HTN (hypertension) I10 Hyperlipidemia E78.5 Annual physical exam Z00.00 Elevated liver enzymes R74.8 Depression F32.A Additional Codes MELISSA-7 Assessment Billing - MELISSA-7 Assessment Tool: MELISSA-7 Assessment 78728 ([id number]) PHQ-9 - 70007 - PHQ-9 Billing: Yes ([id number]) Assessment & Plan Assessment & Plan (1) HTN (hypertension): Code(s): I10 - Essential (primary) hypertension Category: Medical Plan: cont Lisinopril (2) Hyperlipidemia: Code(s): E78.5 - Hyperlipidemia, unspecified Category: Medical Plan: cont statin (3) Annual physical exam: Code(s): Z00.00 - Encounter for general adult medical examination without abnormal findings Category: Medical Plan: Well-balanced diet regular physical activity discussed with the patient he will have a fasting blood work today Cologuard will be checked (4) Elevated liver enzymes: Comment: for 20 yrs, negative bx 2011 Code(s): R74.8 - Abnormal levels of other serum enzymes Category: Medical Plan: Repeat liver ultrasound and monitor LFT (5) Depression: Comment: Established with Psychiatry Code(s): F32.A - Depression, unspecified Category: Medical Plan: Follow-up with psychiatry Orders: Orders Comprehensive Helen. Panel Fast Today E78.5 - Hyperlipidemia, unspecified, I10 - Essential (primary) hypertension, Z00.00 - Encounter for general adult medical examination without abnormal findings Complete Blood Count Auto Diff Today E78.5 - Hyperlipidemia, unspecified, I10 - Essential (primary) hypertension, Z00.00 - Encounter for general adult medical examination without abnormal findings UA w Microscopic Today E78.5 - Hyperlipidemia, unspecified, I10 - Essential (primary) hypertension, Z00.00 - Encounter for general adult medical examination without abnormal findings Alpha Fetoprotein Today R74.8 - Abnormal levels of other serum enzymes US abdomen comp w elastography Today K76.0 - Fatty (change of) liver, not elsewhere classified, N28.1 - Cyst of kidney, acquired, R74.8 - Abnormal levels of other serum enzymes Lipid Panel Today E78.5 - Hyperlipidemia, unspecified, I10 - Essential (primary) hypertension, Z00.00 - Encounter for general adult medical examination without abnormal findings Gamma Glutamyl Transpeptidase Today R74.8 - Abnormal levels of other serum enzymes Referrals Cologuard Test Z12.11 - Encounter for screening for malignant neoplasm of colon, Z12.12 - Encounter for screening for malignant neoplasm of rectum Medications: Changed From lorazepam 1 tablet 1 hour before a flight 0.5 mg PO DAILY 6 tabs 0RF To lorazepam 1 tablet 1 hour before a flight 0.5 mg PO DAILY PRN
== END 2025-07-31 12:12 | disposition home or self-care (01) ==
PROVIDERS: PCP Internal Medicine; Visit Provider Internal Medicine
DX: Z00.00 Encounter for general adult medical examination without abnormal findings (principal); I10 Essential (primary) hypertension; E78.5 Hyperlipidemia, unspecified; R74.8 Abnormal levels of other serum enzymes; F32.A Depression, unspecified

== ENCOUNTER → 2025-07-31 11:27 | Outpatient (BNVA) | payer OTHER, SELFPAY | PROVIDERS: PCP Internal Medicine; Visit Provider Internal Medicine | DX: Z00.00 Encounter for general adult medical examination without abnormal findings (principal); I10 Essential (primary) hypertension; E78.5 Hyperlipidemia, unspecified; R74.8 Abnormal levels of other serum enzymes; F32.A Depression, unspecified | CPT/HCPCS: 96127; 99396 ==

== ENCOUNTER 2025-08-06 10:27 | Outpatient (REF) | payer OTHER, SELFPAY ==
[2025-08-06 13:15] LABS: MANUAL DIFF FLAG NO
[2025-08-06 13:21] LABS: Appearance Urine Clear; Glucose Urine UA Negative (Negative); PH 5.5 (5.0-9.0); Specific Gravity - Urine 1.010 (1.005-1.025); UMIC TRIGGER UA YES
[2025-08-06 13:30] LABS: Hematocrit 38.4 % (42.0-52.0); Hemoglobin 13.1 g/dl (14.0-18.0); Imm Gran Abs Auto 0.04 X10*3/uL (0.00-0.03); Imm Gran Pct Auto 0.4 % (0.0-0.4); Lymphocytes Absolute Auto 2.4 X10*3/uL (1.2-4.9); Mean Corpuscular HGB Conc 34.1 g/dl (31.0-36.0); Mean Corpuscular Hemoglobin 31.4 pg (27.0-33.0); Mean Corpuscular Volume 92.1 fL (80.0-98.0); NRBC Abs Auto 0.000 X10*3/uL (0.0-0.012); NRBC Pct Auto 0.0 /100WBC (0.0-0.2); Platelet Count 247 X10*3/uL (160-400); Red Blood Count 4.17 X10*6/uL (4.60-5.80); White Blood Count 9.5 X10*3/uL (4.8-10.8)
[2025-08-06 13:51] LABS: Alanine Aminotransferase 72 U/L (0-40); Albumin Level 4.8 g/dL (3.5-5.0); Alkaline Phosphatase 153 U/L (39-117); Anion Gap 15 (12-20); Aspartate Amino Transferase 36 U/L (5-37); Blood Urea Nitrogen 14 mg/dL (9-16); Calcium 9.2 mg/dL (8.4-10.2); Carbon Dioxide 25 mmol/L (22-29); Chloride 105 mmol/L (96-108); Cholesterol 203 mg/dL (<200); Estimated Glomerular Filt Rate > 60; HDL Cholesterol 46 mg/dL (>40); Potassium 4.3 mmol/L (3.3-5.1); Sodium 141 mmol/L (135-145); Total Protein 7.9 g/dL (6.5-8.0); Triglycerides 174 mg/dL (<150)
[2025-08-06 14:15] LABS: Gamma Glutamyl Transpeptidase 268 U/L (11-51)
== END 2025-08-06 10:28 | disposition home or self-care (01) ==
LOC: HO.HMGCLDS 10:27
PROVIDERS: PCP Internal Medicine; Visit Provider Internal Medicine
DX: Z00.00 Encounter for general adult medical examination without abnormal findings (principal); I10 Essential (primary) hypertension; E78.5 Hyperlipidemia, unspecified; R74.8 Abnormal levels of other serum enzymes
CPT/HCPCS: 36415; 80053; 80061; 81001; 82105; 82977; 85025

== ENCOUNTER 2025-10-07 09:58 | Outpatient (REF) | payer OTHER, SELFPAY ==
--- NOTE | ~2025-10-07 | US_ITS ---
EXAMINATION: US ABDOMEN COMPLETE WITH LIVER ELASTOGRAPHY HISTORY: R74.8 - Abnormal levels of other serum enzymes TECHNIQUE: Real-time grayscale ultrasound imaging of the abdomen was performed and images were reviewed. COMPARISON: Comparison is made with the prior examination dated 12/10/2023. Correlation is also made with the prior elastography study dated 09/12/2021. FINDINGS: Liver: The right lobe of the liver measures 11.9 cm in size. The left lobe of the liver measures 8.8 cm in size. The liver demonstrates normal homogeneous echotexture. No focal mass or intrahepatic biliary ductal dilatation is identified. There is normal hepatopedal flow in the portal vein. Ultrasound elastography of the liver was performed with 10 separate measurements of the liver parenchyma with the patient in the supine position. Measurements were obtained approximately 2 cm below Ashely's capsule and perpendicular to the capsule. The median shear wave velocity is 0.85 m/s (previously 1.31 m/s). The interquartile range/median (IQR/median) is 0.19. Gallbladder and biliary tree: The gallbladder is unremarkable, without evidence of calculi, wall thickening, or pericholecystic fluid. There is no sonographic Lopez sign. The common bile duct is normal in caliber measuring 4 mm in diameter. Kidneys: The right kidney measures 10.6 cm in length and demonstrates a 2.0 x 1.6 x 1.4 cm upper pole cyst and a 0.8 x 1.0 x 1.1 cm cyst in the interpolar region.. The left kidney measures 10.7 cm in length and demonstrates a lobulated contour. There are upper pole cysts measuring 1.6 x 1.1 x 1.1 cm and 0.7 x 0.6 x 0.7 cm. The kidneys are otherwise unremarkable, without evidence of solid masses, hydronephrosis, or calculi. Pancreas: The pancreatic head, neck, and body are unremarkable. The pancreatic tail is obscured by bowel gas. Spleen: The spleen is normal in size and contour, measuring 11.6 cm in length. Abdominal aorta and inferior vena cava: The visualized portions of the abdominal aorta and inferior vena cava are normal in caliber. There is no free fluid in the abdomen. US/US abdomen comp w elastography IMPRESSION: Bilateral renal cysts as described. Lobulated left renal contour is suggestive of scarring. The median shear wave velocity in the liver is 0.85 m/s, corresponding to a median liver stiffness of 2.2 kPa. The IQR/median value is 0.19. This is indicative of a quality data set. Findings are indicative of a normal elastography value with a low likelihood of severe fibrosis or cirrhosis. REFERENCE: Society of Radiologists in Ultrasound Liver Stiffness Thresholds (2020): LIVER STIFFNESS THRESHOLDS: *Shear wave velocity less than 1.3 m/s (Liver Stiffness equal or less than 5 kPa): High probability of being normal. *Shear wave velocity less than 1.7 m/s (Liver Stiffness less than 9 kPa): In the absence of other known clinical signs, rules out compensated advanced chronic liver disease. *Shear wave velocity between 1.7-2.1 m/s (Liver Stiffness 9-13 kPa): Suggestive of compensated advanced chronic liver disease but need further test for confirmation. *Shear wave velocity between 2.1-2.4 m/s (Liver Stiffness 13-17 kPa): Rules in compensated advanced chronic liver disease. *Shear wave velocity greater than 2.4 m/s (Liver Stiffness over 17 kPa): Suggestive of clinically significant portal hypertension. QUALITY OF DATA SET: *IQR/Median value equal or less than 0.30 implies a quality data set. *IQR/Median value over 0.30 implies a poor quality data set. SIGNIFICANT CHANGE FROM PRIOR EXAM: Significant change if liver stiffness measurement is 10% or greater from prior exam. OTHER CONSIDERATIONS: The stage of liver fibrosis may be overestimated in the setting of acute hepatitis, liver inflammation, elevated liver function tests, hepatic vascular congestion, obstructive cholestasis, non-fasting state, and infiltrative diseases such as amyloidosis and lymphoma. In some patients with NAFLD, the liver stiffness thresholds for compensated advanced chronic liver disease may be lower. In causes other than viral hepatitis and NAFLD, liver stiffness thresholds are not well established. Electronically signed by: Bj Reddy MD 10/07/2025 11:08 AM [facility] [place]
== END 2025-10-07 09:59 | disposition home or self-care (01) ==
LOC: HO.US 09:58
PROVIDERS: PCP Internal Medicine; Visit Provider Internal Medicine
DX: K76.0 Fatty (change of) liver, not elsewhere classified (principal); N28.1 Cyst of kidney, acquired; R74.8 Abnormal levels of other serum enzymes
CPT/HCPCS: 76700; 76981

== ENCOUNTER → 2025-10-07 09:59 | Outpatient (BNV) | payer OTHER, SELFPAY | PROVIDERS: PCP Internal Medicine; Visit Provider Radiology Diagnostic Radiology | DX: N28.1 Cyst of kidney, acquired (principal) | CPT/HCPCS: 76700 ==